=== PATIENT | female | born 1995 | race Caucasian/White ===

== ENCOUNTER 2018-12-27 11:15 | Emergency (ER) | payer BC, SELFPAY ==
[2018-12-27 11:20] VITALS: BP 153/94; PULSE 126; RESP 18; TEMP 37.3; O2SAT 98
--- NOTE | 2018-12-27 11:26 | ED.GENADUL_ITS ---
Discharge Plan Disposition Patient Disposition: HOME Condition: Improving Discharge Details Chief Complaint: Sorethroat Clinical Impression: Exudative pharyngitis Primary Care Provider: Judith Pastrana ED Provider: Homer Dillard Home Meds and New Rx's Prescriptions: New penicillin V potassium 500 mg tablet 500 mg PO TID 10 Days Qty: 30 RF: 0 Cepacol Sore Throat (taina-men) 15-3.6 mg lozenge 1 trinity MM Q2H PRN (Reason: sore throat) Qty: 16 RF: 0 No Action penicillin V potassium 500 MG tablet 500 mg PO QID Qty: 40 RF: 0 Discharge Instructions Instructions: Pharyngitis (ED) Additional Instructions: Home to rest today. Small, frequent sips of fluids to maintain hydration. May use Tylenol and/or ibuprofen as needed for discomfort. Take penicillin as prescribed. Return for difficulty swallowing, increasing pain, persistent fevers, or any other acute concern Stand Alone Forms: Work Release Medical Decision Making 22-year-old female with sore throat and fever over days time. She arrives with elevated pulse, exam that reveals exudative pharyngitis. Given Tylenol and a popsicle and her pulse improved. Her rapid strep test is negative, but she does have evidence of an exudative pharyngitis. Discussed with the patient and her mother empirical treatment for streptococcal pharyngitis we will proceed with a course of penicillin. She is stable and improving, appropriate for discharge to home. They understand return precautions to the ED. HPI General Mode of arrival: ambulatory . Date/Time Provider Initiated Documentation: 12/27/18 11:22 . Limitations to Documentation: no limitations . Information obtained by: patient . History of Present Illness 23 year old F presents to the emergency department with the chief complaint of Sore throat, fever, body ache, described as moderate, Quality is described as aching, and is localized to the mouth. Patient started experiencing this hour(s) and it has been constant. No relieving factors improve symptom(s), No exacerbating factors reported . Patient notes fever/chills. Patient did receive the following treatments prior to arrival, none Related Data Home Medications Medication Instructions Recorded Confirmed penicillin V potassium 500 mg PO QID #40 tablet 08/07/17 benzocaine-menthol [Cepacol Sore 1 trinity MM Q2H PRN #16 each 12/27/18 Throat (taina-men)] penicillin V potassium 500 mg PO TID 10 Days #30 tab 12/27/18 Previous Rx's Medication Instructions Recorded penicillin V potassium 500 mg PO QID #40 tablet 08/07/17 benzocaine-menthol [Cepacol Sore 1 trinity MM Q2H PRN #16 each 12/27/18 Throat (taina-men)] penicillin V potassium 500 mg PO TID 10 Days #30 tab 12/27/18 Allergies Allergy/AdvReac Type Severity Reaction Status Date / Time No Known Allergies Allergy Unverified 12/27/18 11:23 General Stated Complaint: Sorethroat MAICO: 4 Review of Systems Review of Systems Narrative: Positive sick contacts at home. No vomiting. She has otherwise been well. 6 systems reviewed and negative [facility] Medical History Amenorrhea (Acute) Family History Mother Essential hypertension Depression Father Essential hypertension Depression Asthma Sister No problems noted. Grandfather No problems noted. Grandfather No problems noted. Grandmother Neoplasm BLADDER Grandmother No problems noted. Family History Substance abuse Diabetes Hyperlipidemia Autism IBD (inflammatory bowel disease) IBS (irritable bowel syndrome) Thyroid disease Social History Smoking/Tobacco Use Status: Former Tobacco Use Alcohol Intake: current Alcohol Intake frequency: holidays/special occasions only Drug use: Never Do you feel safe in your relationship?: Yes Exam Narrative Exam Narrative: GEN: awake, alert, oriented 3. Pleasant, well groomed, interactive. HEAD: Normocephalic, atraumatic ENT: Mucous membranes moist, oropharynx erythematous tonsillar pillars with overlying white exudate, External ear exam unremarkable EYES: PERRL, EOMI NECK: Full ROM, no FER, no menigismus CHEST/RESP: Nontender, clear to auscultation bilateral, no wheeze/rhonchi/rales CARDIOVASCULAR: Borderline tachycardia RRR, no murmur, rub mane. 2+ Rad pulse bilateral ABDOMEN: Soft, nontender, no mass. +Bowel sounds EXT: Full ROM, no edema, no rash Neuro: Grossly normal neurologic exam, conversant, interactive. Psych: Speech fluent, thoughts congruent, affect normal Course Vital Signs Vital signs: Vital Signs Temperature 37.3 C 12/27/18 11:20 Pulse 126 H 12/27/18 11:20 Respiratory Rate 18 12/27/18 11:20 Blood Pressure 153/94 H 12/27/18 11:20 Pulse Oximetry 98 12/27/18 11:20 Temperature 37.3 C 12/27/18 11:20 Temperature Source Skin 12/27/18 11:20 Pulse 126 H 12/27/18 11:20 Respiratory Rate 18 12/27/18 11:20 Blood Pressure 153/94 H 12/27/18 11:20 Pulse Oximetry 98 12/27/18 11:20 Pain Level 8 12/27/18 11:20
[2018-12-27] MEDS: Acetaminophen 500 MG TAB 1000 MG PO (11:31)
== END 2018-12-27 12:35 | disposition home or self-care (01) ==
PROVIDERS: Emergency Provider Emergency Medicine
DX: J02.9 Acute pharyngitis, unspecified (principal)
CPT/HCPCS: 87880; 99283; 87081

== ENCOUNTER 2019-07-03 07:49 | Emergency (ER) | payer BC, SELFPAY ==
[2019-07-03 07:54] VITALS: BP 120/70; PULSE 127; RESP 18; TEMP 36.8; O2SAT 97
--- NOTE | 2019-07-03 08:49 | ED.GENADUL_ITS ---
Discharge Plan Disposition Patient Disposition: HOME Condition: Stable Discharge Details Chief Complaint: DentalOral Clinical Impression: Dental abscess Primary Care Provider: None,None ED Provider: Kassandra Bettencourt Home Meds and New Rx's Prescriptions: New penicillin V potassium 500 mg tablet 500 mg PO QID Qty: 40 RF: 0 No Action Cepacol Sore Throat (taina-men) 15-3.6 mg lozenge 1 trinity MM Q2H PRN (Reason: sore throat) Qty: 16 RF: 0 calcium polycarbophil [Fiber (calcium polycarbophil)] 625 mg Tablet 625 mg PO QID RF: 0 Probiotic 3 billion cell Capsule 3,000 mmu cells PO DAILY RF: 0 Discharge Instructions Instructions: Dental Abscess (ED) Additional Instructions: Warm salt water rinses after eating or drinking. Motrin or Tylenol for soreness if needed. Use antibiotics as prescribed. Rest activities as tolerated. Ice to the cheek if needed. Keep head of bed elevated for comfort. Follow-up with local dentist. Follow-up with PCP if not improving in the next 3 to 5 days. Observe for any fevers lasting greater than 3 to 5 days as discussed. Reevaluate for any increased facial swelling, difficulty eating or drinking, increase in ill feeling or worsening symptoms as discussed Discharge Data Discharge Date/Time-TO BE ENTERED AT DEPARTURE: 07/03/19 08:48 Medical Decision Making This is a 24-year-old patient presenting for complaints of dental pain for the last several days. Patient reports onset of fever noted this morning she measured her temperature at home today after feeling somewhat febrile and noted to 101 temperature. Patient did not take any medications prior to arrival to the emergency room. Afebrile on arrival here. Patient does report she is feeling anxious regarding being in the emergency room right now she does have a heart rate noted of 127 however denies any chest pain with difficulty getting shortness of breath or wheezing. Patient denies upper respiratory symptoms at this time. She reports mild nasal congestion but denies any cough, ear pain, sore throat, headache, dizziness. Patient denies any abdominal pain, nausea, vomiting. She did report a single episode of diarrhea however she does report that she typically gets GI upset after eating certain foods. On physical exam patient does have a mild area of swelling adjacent to right upper posterior tooth. No trismus. On physical exam patient does have a right upper posterior molar which does appear infected there is swelling adjacent to the right posterior molar. Discussed incision and drainage. No significant fluctuance at this time. Will trial antibiotics initially. Counseled regarding signs and symptoms for which patient should have return. Patient agrees with this plan of care. Conservative treatments also discussed. The patient was stable and requested discharge. Prior to discharge, my usual and customary return precautions were reviewed with the patient - this included follow-up instructions and reasons to return to the Emergency Department if conditions worsens, does not improve as expected, or other new concerns arise. HPI General Date/Time Provider Initiated Documentation: 07/03/19 08:11 . HPI Narrative: Is a 24-year-old patient presenting for complaints of dental pain. Patient reports 4 days of dental pain. History of similar in the past however patient is noting mild swelling to the soft palate adjacent to the tooth which is painful. Patient also reports gum swelling externally on the gums. Denies any facial swelling. Patient denies any cough, difficulty breathing shortness of breath or wheezing. No sore throat. No voice change or trismus. Patient does report a fever noted today of 101 which was measured at home. Afebrile here has taken no medications prior to arrival. Patient did report a single episode of diarrhea yesterday, she does report a history of stomach upset intermittently. Patient denies headache or dizziness. Patient denies any other concerns or complaints at this time. Patient does feel well hydrated. Patient does report she is feeling very anxious regarding being here. Patient denies any chest pain difficulty breathing or shortness of breath or wheezing. Related Data Home Medications Medication Instructions Recorded Confirmed benzocaine-menthol [Cepacol Sore 1 trinity MM Q2H PRN #16 each 12/27/18 07/03/19 Throat (taina-men)] calcium polycarbophil [Fiber 625 mg PO QID 07/03/19 07/03/19 (calcium polycarbophil)] lactobacillus combination no.4 3,000 mmu cells PO DAILY 07/03/19 07/03/19 [Probiotic] penicillin V potassium 500 mg PO QID #40 tab 07/03/19 Previous Rx's Medication Instructions Recorded benzocaine-menthol [Cepacol Sore 1 trinity MM Q2H PRN #16 each 12/27/18 Throat (taina-men)] penicillin V potassium 500 mg PO QID #40 tab 07/03/19 Allergies Allergy/AdvReac Type Severity Reaction Status Date / Time No Known Allergies Allergy Unverified 07/03/19 08:00 General Stated Complaint: DentalOral MAICO: 4 Review of Systems All systems reviewed & are unremarkable except as noted in HPI and below Constitutional Constitutional: Denies chills, Denies fatigue, Reports fever(s), Denies headache(s) and Denies malaise ENT Ears, Nose, Mouth, and Throat: Denies halitosis, Reports dental pain, Denies dizziness, Denies headache(s), Denies sinus pain, Denies sinus pressure and Denies sore throat Cardiovascular Cardiovascular: Denies chest pain and Denies dyspnea Respiratory Respiratory: Reports cough, Denies pain with cough and Denies dyspnea Gastrointestinal Gastrointestinal: Denies abdominal pain, Reports diarrhea, Denies nausea and Denies vomiting Neurologic Neurologic: Denies dizziness and Denies headache(s) Psychiatric Psychiatric: Reports anxiety and Denies irritability Endocrine Endocrine: Denies fatigue PFSH Medical History Amenorrhea (Acute) Social History Smoking/Tobacco Use Status: Former Tobacco Use Alcohol Intake: current Alcohol Intake frequency: holidays/special occasions only Drug use: Never Substance use type: does not use Do you feel safe at home: Yes Do you feel safe in your relationship?: Yes Exam Narrative Exam Narrative: CONST: Healthy appearing patient, in no acute distress. Well hydrated. Alert and oriented. HENMT: Head nomocephalic, normal to inspection. Atraumatic. Hearing grossly no rmal. Patient with a area of swelling in the upper right posterior molar which is diffuse, no obvious fluctuance, another area of swelling and mild erythema noted to the soft palate adjacent to the tooth, again no fluctuance. TMs appear normal bilaterally EYES: General normal appearance. Alignment normal. Eyelids normal. Conjunctiva normal. NECK: Normal visual inspection. FROM. Trachea midline. No Midline tenderness. No cervical lymphadenopathy CHEST: Normal insepection of the chest. RESP: Normal respiratory effort. Speaking full sentences. No cough. No audible wheezing. No retractions. Breath sound clear, full and equal bilaterally. No wheezing, rhonchi or rales CARDIO: No JVD. No murmur. Mild tachycardia noted. SKIN: Normal. Dry. No rashes. No facial swelling NEURO: Alert and awake. Speech clear. PSYCH: Normal affect. Cooperative. Course Vital Signs Vital signs: Vital Signs Temperature 36.8 C 07/03/19 07:54 Pulse 127 H 07/03/19 07:54 Respiratory Rate 18 07/03/19 07:54 Blood Pressure 120/70 07/03/19 07:54 Pulse Oximetry 97 07/03/19 07:54 Temperature 36.8 C 07/03/19 07:54 Temperature Source Skin 07/03/19 07:54 Pulse 127 H 07/03/19 07:54 Respiratory Rate 18 07/03/19 07:54 Respiratory Effort Non-Labored 07/03/19 08:03 Blood Pressure 120/70 07/03/19 07:54 Blood Pressure Position Sitting 07/03/19 07:54 Pulse Oximetry 97 07/03/19 07:54 Oxygen Delivery Method Room Air 07/03/19 07:54 Oxygen Flow Rate 0 07/03/19 07:54 Pain Level 6 07/03/19 07:54
== END 2019-07-03 08:48 | disposition home or self-care (01) ==
PROVIDERS: Emergency Provider Physician Assistant
DX: K04.7 Periapical abscess without sinus (principal)
CPT/HCPCS: 99283

== ENCOUNTER 2020-03-01 00:26 | Outpatient (CLI) | payer BC, SELFPAY ==
--- NOTE | 2020-03-01 06:45 | DI.US_ITS ---
EXAM: US PELVIS CLINICAL HISTORY: Amenorrhea TECHNIQUE: Ultrasound performed using standard protocol. COMPARISON: No exams were available for comparison FINDINGS: Pelvic ultrasound was performed transabdominally only at the patient's request. Uterus is normal in appearance, measuring 8.3 x 1.6 x 3.5 cm. Endometrial stripe is not well visualized cannot be measur ed. Right ovary measures 44 x 24 x 19 millimeters, left ovary measures 39 x 20 x 19 millimeters. The ova susannah are unremarkable in appearance with no gross vascular abnormality associated with the ovaries. Limited scanning of the kidneys is unremarkable. No free fluid in the cul-de-sac. IMPRESSION: Negative pelvic ultrasound, performed transabdominally only. DATA REPOSITORY:
== END 2020-03-01 00:46 ==
PROVIDERS: PCP Nurse Practitioner Family; Visit Provider Nurse Practitioner Family
DX: N91.2 Amenorrhea, unspecified (principal)
CPT/HCPCS: 76856

== ENCOUNTER → 2020-04-28 03:09 | Outpatient (CLI) | payer BC, SELFPAY ==
[2020-04-28 12:19] LABS: HCG Quant, Pregnancy < 1 mIU/mL (1-3)
[2020-04-28 16:49] LABS: Estradiol 40 pg/mL (See Note)
[2020-04-28 17:29] LABS: Prolactin 9.5 ng/mL (See Table)
[2020-05-01 23:16] LABS: 17-Hydroxyprogesterone 43 ng/dL
== END ==
PROVIDERS: PCP Nurse Practitioner Family; Visit Provider Obstetrics & Gynecology
DX: N91.5 Oligomenorrhea, unspecified (principal)
CPT/HCPCS: 36415; 82670; 83498; 84146; 84702

== ENCOUNTER 2020-11-03 04:37 | Emergency (ER) | payer BC, SELFPAY ==
--- NOTE | 2020-11-03 04:53 | W.ED.GENAD ---
Discharge Plan Disposition Patient Disposition: HOME Condition: Stable Discharge Details Clinical Impression: Acute lumbar myofascial strain Primary Care Provider: Jacquelyn Ladd ED Provider: Baylee Gan Home Meds and New Rx's Prescriptions: New methocarbamol 500 mg tablet 500 mg PO Q6H PRN (Reason: muscle spasm) Qty: 14 RF: 0 naproxen [Naprosyn] 500 mg tablet 500 mg PO BID PRN (Reason: pain) Qty: 14 RF: 0 Continued Benefiber Clear SF (dextrin) 3 gram/3.5 gram powder in packet 1.5 g PO TID RF: 0 medroxyprogesterone [Provera] 10 mg tablet 10 mg PO DAILY Qty: 10 RF: 3 lamotrigine 200 mg tablet 200 mg PO DAILY Qty: 90 RF: 4 quetiapine 25 mg tablet 25 mg PO DAILY Qty: 90 RF: 0 dextroamphetamine-amphetamine [Adderall] 30 mg tablet 30 mg PO BID MDD 60mg Qty: 60 RF: 0 lamotrigine 200 mg tablet RF: 0 Discharge Instructions Instructions: Low Back Strain (ED) Additional Instructions: Apply ice to the affected area several times daily for 20 minutes at a time. Your prescriptions have been sent electronically to your pharmacy. Call the pharmacy to make sure your prescriptions are ready before pickup. Take the prescriptions as directed. Take the anti-inflammatory naproxen and a muscle relaxer methocarbamol as needed and directed for pain. Follow-up with your primary care doctor in 1 week. Return to the emergency department with any worsening or new concerning symptoms such as fever, vomiting, abdominal pain, loss of bowel or bladder function, rectal pain or bleeding or any other concerns. Discharge Data Discharge Date/Time-TO BE ENTERED AT DEPARTURE: 11/03/20 05:58 Discharge Physician: Baylee Gan Medical Decision Making 25-year-old female presents with bilateral lower back pain since this morning. Denies any known specific injury but states masturbated with a dildo in her anus yesterday and states she may have twisted her back. She denies any fever, vomiting, abdominal pain, rectal pain or bleeding. No cauda equina symptoms. Patient appears comfortable and nontoxic. Her abdomen is soft and nontender. She has no focal deficits. She is tender to palpation to her bilateral lumbar paraspinal and bilateral upper buttock region. There is no evidence of trauma or rash. She is neurovascularly intact. Urine test negative. Discussed with patient that as her pain is reproducible without focal deficits or GI or symptoms, suspect most likely musculoskeletal etiology as the source. Do not see an indication for labs or imaging at this time. Offered to inspect anus region but she declined stating she did not feel this was necessary and denies any pain in this area at this time. She was given a IM injection of Toradol with some relief. She is walking to [place] to meet her parents to pick her up and does not want any sedating medication. She is given a dose of oral Valium to go. Prescriptions for naproxen and methocarbamol sent electronically to her pharmacy. Advised to follow up with the primary care doctor for re-evaluation. Usual and customary return precautions given prior to discharge. Medical Records Medical records reviewed: Yes I reviewed the patient's medical records. HPI General Mode of arrival: ambulatory. Date/Time Provider Initiated Documentation: 11/03/20 04:38. Limitations to Documentation: no limitations. Information obtained by: patient. HPI Narrative: Patient is a 25-year-old female with a history of obesity, hyperlipidemia, depression, PCOS who presents from home for lower back pain early this morning. Patient states the pain is in her bilateral lower back and upper buttock. She states the pain is worse with movement and walking. She does not take any medication for pain. She denies fever, vomiting, abdominal pain, urinary symptoms, bowel or bladder incontinence, saddle anesthesia, leg pain weakness or numbness. Patient did endorse to the nurse and myself that she masturbated with a rubber dildo in her anus last night and is unsure if this has any relation to the pain. She states she was twisting around during this activity. She denies any other known injury or fall. She denies any rectal pain or bleeding. Related Data Home Medications Medication Instructions Recorded Confirmed lamotrigine 200 mg tablet 200 mg PO DAILY #90 tab-cap 04/14/20 11/03/20 quetiapine 25 mg tablet 25 mg PO DAILY #90 tab 06/16/20 11/03/20 medroxyprogesterone 10 mg tablet 10 mg PO DAILY #10 tab 08/25/20 10/21/20 wheat dextrin 3 gram/3.5 gram oral 1.5 g PO TID 08/25/20 11/03/20 powder packet dextroamphetamine-amphetamine 30 30 mg PO BID #60 tab MDD 60mg 09/27/20 11/03/20 mg tablet lamotrigine 11/03/20 11/03/20 methocarbamol 500 mg PO Q6H PRN #14 tab 11/03/20 naproxen [Naprosyn] 500 mg PO BID PRN #14 tab 11/03/20 Previous Rx's Medication Instructions Recorded lamotrigine 200 mg tablet 200 mg PO DAILY #90 tab-cap 04/14/20 quetiapine 25 mg tablet 25 mg PO DAILY #90 tab 06/16/20 medroxyprogesterone 10 mg tablet 10 mg PO DAILY #10 tab 08/25/20 dextroamphetamine-amphetamine 30 30 mg PO BID #60 tab MDD 60mg 09/27/20 mg tablet methocarbamol 500 mg PO Q6H PRN #14 tab 11/03/20 naproxen [Naprosyn] 500 mg PO BID PRN #14 tab 11/03/20 Allergies Allergy/AdvReac Type Severity Reaction Status Date / Time No Known Allergies Allergy Unverified 10/21/20 11:50 General MAICO: 4 Review of Systems All systems reviewed & are unremarkable except as noted in HPI and below Constitutional Constitutional: Reports as per HPI, Denies chills and Denies fever(s) Eyes Eyes: Denies blurry vision ENT Ears, Nose, Mouth, and Throat: Denies dizziness, Denies sore throat and Denies throat swelling Cardiovascular Cardiovascular: Denies chest pain and Denies dyspnea Respiratory Respiratory: Denies cough and Denies dyspnea Gastrointestinal Gastrointestinal: Denies abdominal pain, Denies diarrhea and Denies vomiting Genitourinary Genitourinary: Denies hematuria and Denies dysuria Musculoskeletal Musculoskeletal: Reports back pain and Denies numbness Integumentary/Breasts Skin/Breast: Denies lesions and Denies rash Neurologic Neurologic: Denies dizziness, Denies localized weakness and Denies numbness Allergic/Immunologic Allergic/Immunologic: Denies throat swelling [facility] Medical History Attention and concentration deficit Generalized anxiety disorder Hyperlipidemia Major depressive disorder Obesity Oligomenorrhea PCOS (polycystic ovarian syndrome) Suicide attempt Surgical History No significant past surgical history Family History Mother Depression Hypertension Father Depression Asthma Hypertension Sister Ulcerative colitis Maternal Grandfather No problems noted. Maternal Grandmother Bladder cancer Paternal Grandfather Depression Paternal Grandmother No problems noted. Maternal Aunt Bipolar affective disorder Social History Smoking/Tobacco Use Status: Former Tobacco Use tobacco type: cigarettes Quit Date: 04/01/18 Tobacco: How many years used: 10 Second Hand Exposure: Yes Smoking risk assessment performed?: Yes Alcohol Intake: current Alcohol Intake frequency: holidays/special occasions only Alcohol type: beer, wine and hard liquor Drug use: Never Substance use type: does not use Caregiver/Support person: No Household members: family Housing: apartment Communication Needs: None Do you need help understanding health information?: Rarely Pets and animals: Yes (Paramichael, sourav glider,) Pets and animals: hamster(s) Sexually active: No Do you think of yourself as: bisexual Current gender identity: neither exclusively male nor female What is your relationship status?: never How often do you talk on the phone with friends or family?: never How often do you get together with friends or relatives?: never How often do you attend oriental orthodox or zoroastrian services?: decline to answer Do you belong to any clubs or organized social groups?: no Panel score (0-1 are the most socially isolated patients): 0 What type of physical activity do you participate in: none Jossy/Baptism: No preference Special jossy needs: No Seatbelt use: always Helmet use: Yes Helmet use: always Drive intox 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 Do you feel safe at home: Yes Do you feel safe in your relationship?: Yes History History 0 Para Hx # Term Pregnancies Multiple births Hx # Pregnancies Ectopic pregnancies AB induced Hx Number of Living Children AB spontaneous Exam Const General: cooperative, healthy appearing and no acute distress HENMT Head: normal to inspection Face and sinus: normal facial exam Eyes General: appearance normal, both eyes and all related structures EOM: EOM intact bilaterally Neck Neck: normal visual inspection and No submandibular swelling Lymphatic: no lymphadenopathy noted Chest Chest: normal inspection of the chest and no tenderness Resp Effort & Inspection: normal respiratory effort and able to speak in complete sentences Auscultation: clear to auscultation bilaterally Cardio Rate: regular rate Rhythm: regular rhythm GI Inspection: normal to inspection Palpation: soft, not firm, not rigid and nontender Auscultation: normal bowel sounds Back/Spine/Pelvis Thoracic/Lumbar Spine: thoracic and lumbar spine normal to inspection, paraspinal tenderness (Bilateral lumbar, reproducible with movement at lumbar region), No thoracic spinal tenderness and No lumbar spinal tenderness Pelvis: no pain with anterior-posterior compression Sacrum: tenderness bilaterally (muscular region in upper buttocks laterally) Skin General skin exam: no rashes or lesions noted Neuro General: patient alert, patient awake and patient oriented x3 Cognition: normal cognition Speech: speech normal Motor: muscle tone normal throughout and strength 5/5 throughout Sensory Exam: no sensory deficits noted DTR's: Rt Patellar: 1+, Lt Patellar: 1+, Rt Ankle: 1+ and Lt Ankle: 1+ Plantar Reflexes: Equivocal: bilateral (Negative Babinski bilaterally) Extrem General: normal to inspection, full ROM, capillary refill normal, no calf tenderness bilaterally and no edema Other: Bilateral DP/PT pulses intact Psych Appearance: grossly normal Mental Status: mental status grossly normal Speech and Movement: speech and movement normal Affect: normal affect
[2020-11-03 04:55] VITALS: BP 149/88; PULSE 92; RESP 18; TEMP 36.6; O2SAT 100
[2020-11-03 05:24] VITALS: RESP 20
[2020-11-03] MEDS: diazePAM 5 MG TAB PO (05:41)
[2020-11-03] MEDS: Ketorolac 60 MG/2 ML VIAL IM (05:42)
[2020-11-03 05:57] VITALS: BP 149/88; PULSE 92; RESP 20; TEMP 36.6; O2SAT 100
== END 2020-11-03 05:58 | disposition home or self-care (01) ==
LOC: ER 05:44
PROVIDERS: Emergency Provider Physician Assistant; PCP Nurse Practitioner Family
DX: S39.012A Strain of muscle, fascia and tendon of lower back, initial encounter (principal); X50.9XXA Other and unspecified overexertion or strenuous movements or postures, initial encounter
CPT/HCPCS: 81025; 96372; 99284; J1885

== ENCOUNTER 2021-06-29 12:05 | Outpatient (REF) | payer BC, SELFPAY ==
--- NOTE | 2021-06-29 10:40 | PAPFT_PTH ---
PATIENT: Yolanda Summers LOC: [facility] U#:[id number] AGE/SX: 26/F ROOM: RE06/29/[address]: Vaishnavi Ma DO : 1995 BED: DIS: 06/29/2021 SPEC #: [id number] RECD: 06/29/21 12:44 STATUS: REZA REQ #: [id number] CARMEL: 06/29/21 10:[address]: Vaishnavi Ma DEPT: [facility] Cytology RECD BY: Vani Beckett ENTERED: 06/29/21 12:44 SP TYPE: PAPFT OTHR DR: Jacquelyn Ladd, PATIENT REGISTRAR Tissues: 1 - CX/ENDOCX FOR PAP SMEARS Procedures: PAP THIN PREP/UVM Screening Comments: [id number] (CHLAMYDIA/GC) (UNSATISFACTORY FOR EVALUATION)
[2021-06-30 15:09] LABS: Chlamydia Result Negative (Negative); GC Result Negative (Negative)
== END 2021-06-29 12:06 | disposition home or self-care (01) ==
LOC: LBN 12:05
PROVIDERS: PCP Nurse Practitioner Family; Visit Provider Obstetrics & Gynecology
DX: Z12.4 Encounter for screening for malignant neoplasm of cervix (principal); R87.615 Unsatisfactory cytologic smear of cervix; Z11.3 Encounter for screening for infections with a predominantly sexual mode of transmission
CPT/HCPCS: 87491; 87591; 88142

== ENCOUNTER 2021-07-11 03:05 | Outpatient (CLI) | payer BC, SELFPAY ==
[2021-07-11 15:20] LABS: Hemoglobin A1C 5.5 % (<5.7)
[2021-07-11 17:27] LABS: Anion Gap 9.6 mmol/L (3-11); BUN 19 mg/dL (7-18); CO2 25.4 mmol/L (21.0-32.0); Calcium 8.5 mg/dL (8.5-10.1); Calculated LDL 114 mg/dL (<100); Chloride 107 mmol/L (98-107); Cholesterol 176 mg/dL (<200); Glucose 75 mg/dL (74-106); HDL Cholesterol 42 mg/dL (40-60); Potassium 4.2 mmol/L (3.5-5.1); Sodium 142 mmol/L (136-145); TSH 1.02 uIU/mL (0.36-3.74); Triglyceride 100 mg/dL (<150)
[2021-07-13 09:57] LABS: HIV-1/2 Ag & Ab Screen Negative (Negative)
[2021-07-13 11:07] LABS: Syphilis Serology (RPR) Negative (Negative)
[2021-07-13 12:51] LABS: Hepatitis A Antibody IgM Negative (Negative); Hepatitis B Core Antibody Negative (Negative); Hepatitis B surface Ag Negative (Negative); Hepatitis C Ab w Rflx HCV PCR Negative (Negative)
== END 2021-07-11 03:06 | disposition home or self-care (01) ==
LOC: LBO 03:06
PROVIDERS: PCP Nurse Practitioner Family; Visit Provider Obstetrics & Gynecology
DX: Z00.00 Encounter for general adult medical examination without abnormal findings (principal); Z11.3 Encounter for screening for infections with a predominantly sexual mode of transmission; Z11.4 Encounter for screening for human immunodeficiency virus [HIV]; Z11.59 Encounter for screening for other viral diseases
CPT/HCPCS: 36415; 80048; 80061; 86704; 86709; 86803; 87340; 87389; 83036; 84439; 84443; 86592

== ENCOUNTER 2021-07-28 09:26 | Outpatient (REF) | payer BC, SELFPAY ==
--- NOTE | 2021-07-28 08:35 | PAPFT_PTH ---
PATIENT: Yolanda Summers LOC: [facility] U#:[id number] AGE/SX: 26/F ROOM: RE07/28/[address]: Vaishnavi Ma DO : 1995 BED: DIS: 07/28/2021 SPEC #: [id number] RECD: 07/28/21 12:53 STATUS: REZA REQ #: [id number] CARMEL: 07/28/21 08:[address]: Vaishnavi Ma DEPT: [facility] Cytology RECD BY: Vani Beckett ENTERED: 07/28/21 12:54 SP TYPE: PAPFT OTHR DR: Jacquelyn Ladd, DIGITAL PROJECT COORDINATOR Tissues: 1 - CX/ENDOCX FOR PAP SMEARS Procedures: PAP THIN PREP/UVM Screening Comments: [id number]
== END 2021-07-28 09:27 | disposition home or self-care (01) ==
LOC: LBN 09:26
PROVIDERS: PCP Nurse Practitioner Family; Visit Provider Obstetrics & Gynecology
DX: Z12.4 Encounter for screening for malignant neoplasm of cervix (principal)
CPT/HCPCS: 88142

== ENCOUNTER 2021-10-22 11:59 | Inpatient (IN) | payer BC, SELFPAY ==
[2021-10-22] VITALS (45 sets, daily range): BP systolic 117–150; BP diastolic 53–104; PULSE 47–108; RESP 12–29; TEMP 35.5–37.3; O2SAT 95–100
--- NOTE | 2021-10-22 12:00 | RT.EKG_ITS ---
APPROVED REPORT Exam: Resting ECG Reason for Exam: overdose tylenol Patient Location: E HR:90 bpm ECG Measurements Heart Rate 90 AXIS IA 187 P 27 QRSd 105 QRS 43 QT 386 T 23 QTc 472 Conclusion Sinus rhythm...normal P axis, V-rate 60- 99 sinus rhythm, normal axis, normal intervals
--- NOTE | 2021-10-22 12:39 | W.ED.GENAD ---
Discharge Plan Disposition Patient Disposition: [facility] INPATIENT Condition: Fair Discharge Details Chief Complaint: OD/Poison Clinical Impression: Tylenol overdose, Suicide attempt Primary Care Provider: Jacquelyn Ladd ED Provider: Nikhil Blakely Home Meds and New Rx's Prescriptions: No Action Benefiber Clear SF (dextrin) 3 gram/3.5 gram powder in packet 3 g PO DAILY Probiotic 3 billion cell capsule 3,000 mmu cells PO DAILY Rx Instructions: administer with a meal Mirena 20 mcg/24 hours (7 yrs) 52 mg intrauterine device 1 device intrauterine ONCE Rx Instructions: as a single dose lamotrigine 150 mg tablet 150 mg PO BID Qty: 60 0RF fluoxetine 20 mg capsule 20 mg PO DAILY Qty: 30 0RF fluoxetine [Prozac] 10 mg capsule 10 mg PO DAILY Qty: 90 3RF Medical Decision Making 26-year-old female brought in by EMS with evidence of self injures behavior, self cutting superficial linear excoriations to wrist and forearm of left upper extremity as well as right upper thigh, hemostatic no foreign bodies no evidence of active infection, no neurovascular involvement or tendinous involvement, patient also endorses beginning last night at unknown time ingesting approximately 55 x500 mg acetaminophen tablets, last dose taken within the last several hours. Patient denies headache nausea vomiting abdominal pain fevers or other systemic symptoms. Patient is hemodynamically stable. Given most recent ingestion was within the last couple of hours will administer activated charcoal, given total calculated dose of acetaminophen at 27,500 mg which exceeds the 150 mg/kg toxic level as well as the 7.5 g toxic level, will empirically start N-acetylcysteine infusion. Will obtain tox labs basic labs EKG screening, will administer fluids antiemetics, after initial medical evaluation will initiate screening by mental health patient will need medical admission to complete 21-hour N-acetylcysteine infusion regimen 14: 13 patient hemodynamically stable. Alert oriented. Maintaining airway. Did have some nausea and slight vomiting after charcoal. NAC infusion initiated. Tylenol level 177 at approximately 10 to 12 hours postinitial ingestion. Patient readmitted to the ICU for continued monitoring of hemodynamics labs mental status and continued infusion of NAC. HPI General Date/Time Provider Initiated Documentation: 10/22/21 12:04. HPI Narrative: 26-year-old female history of depression anxiety, presents brought in by EMS picked up from her work where she was self cutting, superficial cuts to her left wrist and forearm as well as her right upper thigh, patient endorses taking approximately 55 x 500 mg acetaminophen tablets beginning last night into this morning unclear initial ingestion however most recent dose within the last couple of hours. Denies headache nausea vomiting fevers chills or other systemic symptoms. Patient Dors is that she was doing this intentionally to harm herself. Related Data Home Medications Medication Instructions Recorded Confirmed lactobacillus combination no.4 3 3,000 mmu cells PO DAILY 07/06/21 08/31/21 billion cell capsule (Probiotic) wheat dextrin 3 gram/3.5 gram oral 3 g PO DAILY 07/06/21 10/19/21 powder packet (Benefiber Clear Sugar Free(dextrin)) fluoxetine 10 mg capsule (Prozac) 10 mg PO DAILY #90 caps 07/28/21 10/19/21 levonorgestrel 20 mcg/24 hours (7 1 device intrauterine ONCE 07/28/21 10/19/21 yrs) 52 mg intrauterine device (Mirena) fluoxetine 20 mg capsule 20 mg PO DAILY #30 caps 10/19/21 10/19/21 lamotrigine 150 mg tablet 150 mg PO BID #60 tabs 10/19/21 10/19/21 Previous Rx's Medication Instructions Recorded fluoxetine 10 mg capsule (Prozac) 10 mg PO DAILY #90 caps 07/28/21 fluoxetine 20 mg capsule 20 mg PO DAILY #30 caps 10/19/21 lamotrigine 150 mg tablet 150 mg PO BID #60 tabs 10/19/21 Allergies Allergy/AdvReac Type Severity Reaction Status Date / Time No Known Allergies Allergy Verified 08/31/21 10:42 General Stated Complaint: OD/Poison MAICO: 2 Review of Systems Narrative: Review of Systems Constitutional: negative Eyes: negative ENT: negative Cardiovascular: negative Respiratory: negative Gastrointestinal: negative : negative Musculoskeletal: negative Skin: Self cutting Neurologic: negative Psych: Depression, self-harm PFSH All Active Problems (Updated 10/22/21 @ 14:15 by Nikhil Blakely MD) Tylenol overdose (Acute) Suicide attempt (Acute) Deliberate self-cutting (Acute) PCOS (polycystic ovarian syndrome) (Chronic) Obstructive sleep apnea (Chronic) PSG 04/22/20 Adjustment disorder with mixed anxiety and depressed mood (Chronic) Per [facility] Psychiatry Hyperlipidemia (Chronic) IUD surveillance (Chronic) Mirena IUD inserted 06/29/21 Heavy menses (Chronic) Oligomenorrhea (Chronic) Obesity (Chronic) Medical History Suicide attempt Tried to choke herself with scarf Surgical History No significant past surgical history Family History Mother Depression Hypertension Father Depression Asthma Hypertension Sister Ulcerative colitis Maternal Grandfather No problems noted. Maternal Grandmother Bladder cancer Paternal Grandfather Depression Paternal Grandmother No problems noted. Maternal Aunt Bipolar affective disorder Social History Smoking/Tobacco Use Status: Current every day Tobacco Type: e-cigarettes Tobacco: How many years used: 10 Second Hand Exposure: Yes Smoking risk assessment performed?: Yes Alcohol Intake: current Alcohol Intake frequency: a few times a month Alcohol type: beer, wine and hard liquor Drug use: Occasionally Substance use type: marijuana Caregiver/Support person: No Household members: family Housing: apartment Communication Needs: None Do you need help understanding health information?: Rarely Pets and animals: Yes (Parakeet, sugar glider,) Pets and animals: hamster(s) Sexually active: Yes Do you think of yourself as: bisexual Current gender identity: neither exclusively male nor female What is your relationship status?: never How often do you talk on the phone with friends or family?: twice per week How often do you get together with friends or relatives?: once per week How often do you attend mosque or pentecostalism services?: decline to answer Do you belong to any clubs or organized social groups?: no Panel score (0-1 are the most socially isolated patients): 1 What type of physical activity do you participate in: walking Duration: 45-60 minutes/day Frequency: 3-4 times per week Jossy/Presybeterian: No preference Special jossy needs: No Seatbelt use: always Helmet use: Yes Helmet use: always Drive intox or ride w/intox residential recycle driver: No Do you feel safe at home: Yes Do you feel safe in your relationship?: Yes History History 0 Para Hx # Term Pregnancies Multiple births Hx # Pregnancies Ectopic pregnancies AB induced Hx Number of Living Children AB spontaneous Exam Narrative Exam Narrative: Physical Examination General: alert, awake, cooperative, resting comfortably, no acute distress HEENT: normocephalic, atraumatic; PERRL, EOM intact, conjunctiva normal; no nasal discharge; moist mucous membranes, oral and pharyngeal mucosa normal, tolerating secretions Neck: supple, trachea midline; full ROM Chest: normal to inspection Respiratory: normal respiratory effort, speaking in full sentences, clear to auscultation, no wheezing, rales or rhonchi Cardiac: regular rate, regular rhythm, S1S2 intact, no murmurs rubs or gallops GI: abdomen soft, non-tender, non-distended; no palpable mass or hepatosplenomegaly Skin: Superficial linear excoriations to wrist and forearm as well as right upper thigh, hemostatic no foreign bodies, no evidence of infection Neuro: AAOx3, normal speech, moving all extremities Extremities: See skin exam Psych: Slightly withdrawn, depression, self-harm, suicide attempt Course Vital Signs Vital signs: Vital Signs Temperature 37.3 C 10/22/21 11:59 Pulse 108 H 10/22/21 11:59 Respiratory Rate 16 10/22/21 11:59 Blood Pressure 149/87 H 10/22/21 11:59 Pulse Oximetry 100 10/22/21 11:59 Temperature 37.3 C 10/22/21 11:59 Temperature Source Temporal Artery Scan 10/22/21 11:59 Pulse 108 H 10/22/21 11:59 Respiratory Rate 16 10/22/21 11:59 Respiratory Effort Non-Labored 10/22/21 12:06 Respiratory Depth Normal 10/22/21 12:06 Respiratory Pattern Normal 10/22/21 12:06 Blood Pressure 149/87 H 10/22/21 11:59 Blood Pressure Position Sitting 10/22/21 11:59 Pulse Oximetry 100 10/22/21 11:59 Oxygen Delivery Method Room Air 10/22/21 11:59 Oxygen Flow Rate 0 10/22/21 11:59 Pain Level 0 10/22/21 11:59
[2021-10-22] MEDS: Normal Saline 1,000 ML 1000 ML IV (12:51)
[2021-10-22] MEDS: Ondansetron 4 MG/2 ML VIAL IVP ×2 (12:55→15:23)
[2021-10-22 12:56] LABS: BE (Venous) -5 mmol/L (-2-3); HCO3 (Venous) 21 mmol/L (23-28); O2 Sat (Venous) 90 %; TCO2 (Venous) 19 mmol/L (24-29); pCO2 (Venous) 37 mmHg (41-51); pH (Venous) 7.36 (7.31-7.41); pO2 (Venous) 56 mmHg
[2021-10-22 13:00] LABS: Abs Immature Grans 0.05 10^3/uL (0.0-0.06); Absolute Basophil Count 0.05 10^3/uL (0.0-0.2); Absolute Eosinophil Count 0.02 10^3/uL (0.0-0.7); Absolute Lymphocyte Count 3.64 10^3/uL (1.2-3.4); Absolute Monocyte Count 0.64 10^3/uL (0.1-0.8); Absolute Neutrophil Count 5.17 10^3/uL (1.2-6.7); Basophils % 0.5; Eosinophils % 0.2; HCT 38.1 % (36.0-46.0); HGB 12.2 g/dL (11.2-15.7); Immature Grans % 0.5; MCH 27.3 pg (27.0-33.0); MCV 85 fL (80-95); MPV 10.8 fL (8.0-11.0); Monocytes % 6.7; Neutrophils % 54.1; Platelet Count 315 10^3/uL (130-400); RBC 4.47 10^6/uL (3.93-5.22); RDW 12.1 % (11.7-14.6); RDW-SD 37.6 fL; WBC 9.57 10^3/uL (4.4-10.8)
[2021-10-22] MEDS: Charcoal/Aqueous 50 GM TUBE PO (13:15)
[2021-10-22 13:18] LABS: Salicylate < 2.8 mg/dL (<2.8)
[2021-10-22 13:20] LABS: Acetaminophen 177 ug/mL (10-30)
[2021-10-22 13:23] LABS: PTT Activated 25.5 sec (21.0-27.5); Prothrombin Time 10.3 sec (9.3-11.0)
[2021-10-22 13:24] LABS: ALT 23 U/L (14-59); AST 21 U/L (15-37); Albumin 3.6 g/dL (3.4-5.0); Alkaline Phosphatase 58 U/L (46-116); Anion Gap 14.4 mmol/L (3-11); BUN 19 mg/dL (7-18); Bilirubin, Total 0.5 mg/dL (0.2-1.0); CO2 21.6 mmol/L (21.0-32.0); CREATININE 1.2 mg/dL (0.55-1.02); Calcium 8.5 mg/dL (8.5-10.1); Chloride 103 mmol/L (98-107); ETHANOL BLOOD < 3.0 mg/dL (<10); Glucose 139 mg/dL (74-106); Lipase 84 U/L (73-393); Potassium 3.1 mmol/L (3.5-5.1); Sodium 139 mmol/L (136-145); TSH (W/Ref FT4) 0.95 uIU/mL (0.36-3.74); Total Protein 8.1 g/dL (6.4-8.2)
[2021-10-22 14:22] LABS: Magnesium 1.9 mg/dL (1.8-2.4)
[2021-10-22 14:33] LABS: Source Nasal/Nares
[2021-10-22 15:26] LABS: COVID-19 PCR Negative (Negative)
--- OUTSIDE RECORDS SUMMARY | 2021-10-22 15:43 | XMS_ITS | Encounter Summary ---
:1995 Demographics Home Phone Preferred Language Unknown Marital Status Unknown Cheondoism Affiliation Unknown Race Unknown Ethnic Group Unknown Author Organization [facility] Address [address] [place] [address] Care Team Providers Name Role Phone Unavailable Primary Care Provider Unavailable Encounter Details Date Type Department Care Team Description 06/29/2021 Lab Requisition [facility] Vaishnavi Ma Encounter for other Pathology & [address] general examination Laboratory Medicine [facility] [address] [address] [facility] [phone] [place] [address] (Work) [phone] Social History Tobacco Use Types Packs/Day Years Used Date Never Assessed Sex Assigned at Date Recorded Not on file documented as of this encounter Plan of Treatment Not on filedocumented as of this encounter Procedures Procedure Name Priority Date/Time Associated Diagnosis Comme nts PAP TEST Today 06/29/2021 10:40 Encounter for other Resu lts for this EDT general examination procedur e are in the results section. CHLAMYDIA/N. Today 06/29/2021 10:40 Results for this GONORRHOEAE EDT procedure are i n AMPLIFIED RNA, the results THINPREP section. documented in this encounter Results PAP TEST (06/29/2021 10:40 EDT) Specimens A. Cervix and/or [facility] Endocervix , [place] ThinPrep Imaging LABORATORY System with Manual SERVICES Evaluation Specimen Adequacy Unsatisfactory for [facility] evaluation - CENTER insufficient numbers LABORATORY of squamous SERVICES epithelial cells (less than 10% of expected cellularity). Sample preparation compromised by excessive blood. General Unsatisfactory [facility] LABORATORY SERVICES Educational Comments An additional slide was prepared and evalua carol. [facility] Unsatisfactory - Specimen pr ocessed and examined, but unsatisfactory for evaluation of epithelial abnormality. Recommend Pap test in 2-4 months as stated in ASCCP's 2012 Updated Guidelines. HPV testing CENTER will not be performed due to the potential for f alse negative results. LABORATORY SERVICES Attestation . [facility] Electronically CENTER signed by JOE Bautista SCT(ASCP) on SERVICES 07/05/2021 at 144 0 Clinical History See below [facility] LABORATORY SERVICES Performing Lab [facility] LAB [facility] LABORATORY SERVICES Scanned Images [facility] LABORATORY SERVICES Specimen Pap Test - Cervix and/or Endocervix Performing Organization Address City/State/ZIP Code Phon e Number [facility] LABORATORY [address] [place] [address] SERVICES CHLAMYDIA/N. GONORRHOEAE AMPLIFIED RNA, THINPREP (06/29/2021 10:40 EDT) Pathologist Sig nature Gonococcus Result Negative Negative [facility] LABORATORY SERVICES Chlamydia Result Negative Negative [facility] LABORATORY SERVICES Specimen Pap Test - Cervix and/or Endocervix Performing Organization Address City/State/ZIP Code Phon e Number [facility]OR[facility] [address] [place] [address] SERVICES documented in this encounter Visit Diagnoses Diagnosis Encounter for other general examination documented in this encounter
--- OUTSIDE RECORDS SUMMARY | 2021-10-22 15:43 | XMS_ITS | Encounter Summary ---
:1995 Demographics Home Phone Preferred Language Unknown Marital Status Unknown Mu-Ism Affiliation Unknown Race Unknown Ethnic Group Unknown Author Organization [facility] Address [address] [place] [address] Care Team Providers Name Role Phone Unavailable Primary Care Provider Unavailable Encounter Details Date Type Department Care Team Description 04/28/2020 Lab Requisition [place] Outr Resulting Lab, Pathology & Laboratory Provider [facility] [address] [place] [address] Social History Tobacco Use Types Packs/Day Years Used Date Never Assessed Sex Assigned at Date Recorded Not on file documented as of this encounter Plan of Treatment Not on filedocumented as of this encounter Procedures Procedure Name Priority Date/Time Associated Diagnosis Comme nts PROLACTIN Routine 04/28/2020 11:06 Results for this EST procedure are i n the results section. ESTRADIOL, ADULTS Routine 04/28/2020 11:06 Result s for this EST procedure are i n the results section. documented in this encounter Results PROLACTIN (04/28/2020 11:06 EST) Prolactin 9.5 See Table [facility] Comment: ng/mL LABORATORY SERVICES NOTE: Female Reference Ranges: PHYSIOLOGICAL STATUS ?EXPECTED R LILIBETH ? ---- Postmenopausal ?1.8 - 2 0.3 ng/mL ?9.7 - 208.5 ng/mL Non- ?2.8 - 29.2 ng/mL Reference Ranges for Prolact in in female patients <18 years old have not been established. Specimen Blood - Venous blood (substance) Performing Organization Address [facility]/ZIP Code Phon e Number [facility] LABORATORY [address] [place] [address] SERVICES ESTRADIOL, ADULTS (04/28/2020 11:06 EST) Estradiol 40 See Note pg/mL [facility] Comment: LABORATORY SERVICES NOTE: FEMALE REFERENCE RANGES: MENSTRUATING ? By cycle day relative to LH peak Follicular ?(-12 to -4 days) ??20-144 pg/mL Midcycle ?(-3 to +2 days) ?? 64-357 pg/mL Luteal ?(+4 t0 +12 days) ??56-214 pg/mL POSTMENOPAUSAL ?<32 pg/mL *Cross reactivity with Fulve strant could lead to a falsely elevated estradiol result in patients treated with this drug. Specimen Blood - Venous blood (substance) Performing Organization Address City/[facility]/ZIP Code Phon e Number [facility] LABORATORY [address] [place] [address] SERVICES documented in this encounter Visit Diagnoses Not on filedocumented in this encounter
--- OUTSIDE RECORDS SUMMARY | 2021-10-22 15:43 | XMS_ITS | Encounter Summary ---
:1995 Demographics Home Phone Preferred Language Unknown Marital Status Unknown Orthodoxy Affiliation Unknown Race Unknown Ethnic Group Unknown Author Organization [facility] Address [address] [place] [address] Care Team Providers Name Role Phone Unavailable Primary Care Provider Unavailable Encounter Details Date Type Department Care Team Description 07/31/2021 Lab Requisition [facility] Vaishnavi Ma Encounter for other Pathology & [address] general examination Laboratory [place] [address] [facility] [phone] [place] [address] (Work) [phone] Social History Tobacco Use Types Packs/Day Years Used Date Never Assessed Sex Assigned at Date Recorded Not on file documented as of this encounter Plan of Treatment Not on filedocumented as of this encounter Procedures Procedure Name Priority Date/Time Associated Diagnosis Comme nts PAP TEST Today 07/28/2021 8:35 EDT Encounter for other R esults for this general examination procedur e are in the results section. documented in this encounter Results PAP TEST (07/28/2021 8:35 EDT) Specimens A. Cervix and/or [facility] MEDICAL Endocervix , ThinPrep CENTER Imaging System with LABORATORY Manual Evaluation SERVICES Specimen Adequacy Satisfactory for [facility] MEDICAL Evaluation - CENTER transformation zone LABORATORY component present SERVICES General Negative for [facility] intraepithelial CENTER lesion or malignancy LABORATORY SERVICES Attestation . [facility] signed by Harish timmons, LABORATORY TAMMY Mccloud( CP) SERVICES on 08/02/2021 at 1518 Clinical History See below [facility] LABORATORY SERVICES Performing Lab [facility] LAB [facility] LABORATORY SERVICES Scanned Images [facility] LABORATORY SERVICES Specimen Pap Test - Cervix and/or Endocervix Performing Organization Address City/State/ZIP Code Phon e Number [facility]OR[facility] [address] [place] [address] SERVICES documented in this encounter Visit Diagnoses Diagnosis Encounter for other general examination documented in this encounter
--- OUTSIDE RECORDS SUMMARY | 2021-10-22 15:43 | XMS_ITS | Encounter Summary ---
:1995 Demographics Home Phone Preferred Language Unknown Marital Status Unknown Faith Affiliation Unknown Race Unknown Ethnic Group Unknown Author Organization [facility] Address [address] [place] [address] Care Team Providers Name Role Phone Unavailable Primary Care Provider Unavailable Encounter Details Date Type Department Care Team Description 07/11/2021 Lab Requisition [facility] Outr Resulting Lab, Pathology & Laboratory Provider [facility] [address] [place] [address] Social History Tobacco Use Types Packs/Day Years Used Date Never Assessed Sex Assigned at Date Recorded Not on file documented as of this encounter Plan of Treatment Not on filedocumented as of this encounter Procedures Procedure Name Priority Date/Time Associated Comments Diagnosis HIV 1/2 ANTIGEN AND Routine 07/11/2021 14:50 Resu lts for this ANTIBODY, 4TH EDT procedure are in GENERATION the results section. documented in this encounter Results HIV 1/2 ANTIGEN AND ANTIBODY, 4TH GENERATION (07/11/2021 14:50 EDT) HIV 1 and 2 NegativeComment: If Negative [facility] Antibody/p24 acute HIV-1 LABORATORY Antigen, 4th infection is SERVICES Generation suspected in a high risk patient, submit plasma specimen for HIV-1 RNA quantitation test. Specimen Blood - Venous blood (substance) Narrative [facility] LABORATORY SERVICES - 07/13/2021 9:52 EDT Fourth Generation assay performed on the Siemens Centaur XPT. Performing Organization Address City/State/ZIP Code Phon e Number [facility] LABORATORY [address] [place] [address] SERVICES documented in this encounter Visit Diagnoses Not on filedocumented in this encounter
--- OUTSIDE RECORDS SUMMARY | 2021-10-22 15:43 | XMS_ITS | Clinical Summary ---
:1995 Demographics Home Phone Preferred Language Unknown Marital Status Unknown Islam Affiliation Unknown Race Unknown Ethnic Group Unknown Author Organization [facility] Address [address] [place] [address] Care Team Providers Name Role Phone Unavailable Primary Care Provider Unavailable Encounters Date Type Specialty Care Team Description 07/31/2021 Lab Requisition Clinical Laboratory Vaishnavi Ma nter for other general examina tion from Last 3 Months Social History Tobacco Use Types Packs/Day Years Used Date Never Assessed Sex Assigned at Date Recorded Not on file Plan of Treatment Health Maintenance Due Date Last Done Comments Hepatitis C Screen 1995 COVID-19 Vaccine (1) 2000 Procedures Procedure Name Priority Date/Time Associated Diagnosis Comme nts PAP TEST Today 07/28/2021 8:35 EDT Encounter for other R esults for this general examination procedur e are in the results section. from Last 3 Months Results PAP TEST (07/28/2021 8:35 EDT) Specimens A. Cervix and/or [facility] MEDICAL Endocervix , ThinPrep CENTER Imaging System with LABORATORY Manual Evaluation SERVICES Specimen Adequacy Satisfactory for [facility] MEDICAL Evaluation - CENTER transformation zone LABORATORY component present SERVICES General Negative for [facility] intraepithelial CENTER lesion or malignancy LABORATORY SERVICES Attestation . [facility] CENTER signed by Harish timmons LABORATORY TAMMY Mccloud( CP) SERVICES on 08/02/2021 at 1518 Clinical History See below [facility] LABORATORY SERVICES Performing Lab [facility] LAB [facility] LABORATORY SERVICES Scanned Images [facility] LABORATORY SERVICES Specimen Pap Test - Cervix and/or Endocervix Performing Organization Address City/State/ZIP Code Phon e Number [facility] LABORATORY [address] [place] [address] SERVICES from Last 3 Months
--- OUTSIDE RECORDS SUMMARY | 2021-10-22 15:43 | XMS_ITS | Encounter Summary ---
:1995 Demographics Home Phone Preferred Language Unknown Marital Status Unknown Quaker Affiliation Unknown Race Unknown Ethnic Group Unknown Author Organization [facility] Address [address] [place] [address] Care Team Providers Name Role Phone Unavailable Primary Care Provider Unavailable Encounter Details Date Type Department Care Team Description 07/11/2021 Lab Requisition [facility] Outr Resulting Lab, Pathology & Laboratory Provider [facility] [address] [place] [address] Social History Tobacco Use Types Packs/Day Years Used Date Never Assessed Sex Assigned at Date Recorded Not on file documented as of this encounter Plan of Treatment Not on filedocumented as of this encounter Procedures Procedure Name Priority Date/Time Associated Diagnosis Comme nts SYPHILIS SEROLOGY Routine 07/11/2021 14:50 Result s for this EDT procedure are i n the results section. documented in this encounter Results SYPHILIS SEROLOGY (07/11/2021 14:50 EDT) Pathologist Sig nature Syphilis Serology Negative Negative [facility] LABORATORY SERVICES Specimen Blood - Venous blood (substance) Performing Organization Address City/State/ZIP Code Phon e Number [facility] LABORATORY [address] [place] [address] SERVICES documented in this encounter Visit Diagnoses Not on filedocumented in this encounter
[2021-10-22 16:30] LABS: Bilirubin Negative (Negative); Blood Trace-intact (Negative); Clarity Clear (Clear); Glucose Negative (Negative); Ketones >=160 mg/dL (Negative); Leukocyte Esterase Trace (Negative); Nitrite Negative (Negative); Specific Gravity >= 1.030 (1.005-1.025); Urobilinogen 0.2 EU/dL (Up TO 0.2); pH 5.5 (5-8)
[2021-10-22 16:37] LABS: *AMPHETAMINES SCREEN URINE Negative (Negative); *BARBITURATES SCREEN URINE Negative (Negative); *BENZODIAZEPINES SCREEN URINE Negative (Negative); Cannabinoids THC Negative (Negative); Cocaine Screen,Urine Negative (Negative); METHADONE URINE SCREEN Negative (Negative); OPIATES URINE SCREEN Negative (Negative)
[2021-10-22 16:38] LABS: Tricyclic Antidepressants Negative (Negative)
[2021-10-22 16:43] LABS: Bacteria Few HPF (Negative); C & S Indicated? No/Sq. Contamination; Crystals Negative HPF (Negative); Epithelial Cells Many HPF (Negative); Mucus Negative (Negative)
--- NOTE | 2021-10-22 17:10 | W.PM.HP.N ---
Date of service: 10/22/21 Time of Service: 17:10 Assessment and Plan Assessment and plan (1) Tylenol overdose: Status: Acute Assessment and plan: Given the severity of her overdose of Tylenol patient will probably need continued N-acetylcysteine infusion out to 48 hours. I will repeat her BMP and LFTs tonight, and continue every 12 hour LFT monitoring. NAC protocol was started emergency department with a loading dose of 150 mg/kg over an hour followed by 50 mg/kg over 4 hours followed by 100 mg/kg over 16 hours. Critical care time spent interviewing and examining the patient, reviewing studies, discussing case with patient's nurse and consulting physicians was 60 minutes (2) Suicide attempt: Status: Acute Assessment and plan: Once patient is medically stable we will assess [facility] human services to evaluate for inpatient psychiatric treatment given the severity of her suicidal attempt and history of previous suicidal attempts. (3) Deliberate self-cutting: Status: Acute (4) Obstructive sleep apnea: Status: Chronic Assessment and plan: Patient formerly had CPAP machine but has not used it for quite some time. We will apply supplemental oxygen at night. History of Present Illness History of Present Illness Chief Complaint: Suicide attempt with Tylenol overdose Narrative: 26-year-old female with a history of depression and previous suicidal attempts presents to the emergency department began taking acetaminophen tablets 500 mg tablets last night and an undetermined time ingesting approximately 55 tablets of 500 mg each with the last dose taken a few hours prior to admission. She has no nausea vomiting or abdominal pain. She is also has evidence of self cutting with superficial linear excoriations to her wrist and forearm and right upper thigh. Patient was given activated charcoal and had some nausea and slight vomiting after the charcoal. N-acetylcysteine infusion was begun as her calculated total dose acetaminophen was 27.5 g which exceeds the 150 mg/kg toxic level. Basic labs including tox screen EKG screen CBC CMP were all obtained. Acetaminophen level came back 177 mcg/mL well above the toxic level. Patient was begun on the NAC IV protocol for 20-hour infusion. Initial CMP showed low potassium of 3.1 slightly elevated anion gap of 14.4 and a BUN of 19 creatinine 1.2. Surprisingly transaminases are within normal limits. Pro time was normal. Lipase and TSH were also normal. CBC was normal. Patient is admitted to the intensive care unit on a Mucomyst protocol with serial monitoring over LFTs. Mental health will be consulted to evaluate her for her suicidal behavior. Review of Systems All systems reviewed & are unremarkable except as noted in HPI and below PFSH All Active Problems (Updated 10/22/21 @ 17:41 by Alessio Dunn MD) Tylenol overdose (Acute) Suicide attempt (Acute) Deliberate self-cutting (Acute) PCOS (polycystic ovarian syndrome) (Chronic) Obstructive sleep apnea (Chronic) PSG 04/22/20 Adjustment disorder with mixed anxiety and depressed mood (Chronic) Per [facility] Psychiatry Hyperlipidemia (Chronic) IUD surveillance (Chronic) Mirena IUD inserted 06/29/21 Heavy menses (Chronic) Oligomenorrhea (Chronic) Obesity (Chronic) Medical History (Updated 10/22/21 @ 17:41 by Alesiso Dunn MD) H/O lead poisoning Childhood exposure from leaded paint Suicide attempt Tried to choke herself with scarf Surgical History No significant past surgical history Family History Mother Depression Hypertension Father Depression Asthma Hypertension Sister Ulcerative colitis Maternal Grandfather No problems noted. Maternal Grandmother Bladder cancer Paternal Grandfather Depression Paternal Grandmother No problems noted. Maternal Aunt Bipolar affective disorder Social History Smoking/Tobacco Use Status: Current every day Tobacco Type: e-cigarettes Tobacco: How many years used: 10 Second Hand Exposure: Yes Smoking risk assessment performed?: Yes Alcohol Intake: current Alcohol Intake frequency: a few times a month Alcohol type: beer, wine and hard liquor Drug use: Occasionally Substance use type: marijuana Caregiver/Support person: No Household members: family Housing: apartment Communication Needs: None Do you need help understanding health information?: Rarely Pets and animals: Yes (Parakeet, sugar glider,) Pets and animals: hamster(s) Sexually active: Yes Do you think of yourself as: bisexual Current gender identity: neither exclusively male nor female What is your relationship status?: never How often do you talk on the phone with friends or family?: twice per week How often do you get together with friends or relatives?: once per week How often do you attend buddhism or synagogue services?: decline to answer Do you belong to any clubs or organized social groups?: no Panel score (0-1 are the most socially isolated patients): 1 What type of physical activity do you participate in: walking Duration: 45-60 minutes/day Frequency: 3-4 times per week Jossy/Hoahaoism: No preference Special jossy needs: No Seatbelt use: always Helmet use: Yes Helmet use: always Drive intox or ride w/intox tram driver: No Do you feel safe at home: Yes Do you feel safe in your relationship?: Yes History History 0 Para Hx # Term Pregnancies Multiple births Hx # Pregnancies Ectopic pregnancies AB induced Hx Number of Living Children AB spontaneous Meds Allergies and Home Medications Allergies Allergy/AdvReac Type Severity Reaction Status Date / Time No Known Allergies Allergy Verified 08/31/21 10:42 Home Medications Medication Instructions Recorded Confirmed Type lactobacillus combination no.4 3 3,000 mmu cells PO DAILY 07/06/21 10/22/21 History billion cell capsule (Probiotic) wheat dextrin 3 gram/3.5 gram oral 3 g PO DAILY 07/06/21 10/22/21 History powder packet (Benefiber Clear Sugar Free(dextrin)) fluoxetine 10 mg capsule (Prozac) 10 mg PO DAILY #90 caps 07/28/21 10/22/21 Rx levonorgestrel 20 mcg/24 hours (7 1 device intrauterine ONCE 07/28/21 10/22/21 History yrs) 52 mg intrauterine device (Mirena) fluoxetine 20 mg capsule 20 mg PO DAILY #30 caps 10/19/21 10/22/21 Rx lamotrigine 150 mg tablet 150 mg PO BID #60 tabs 10/19/21 10/22/21 Rx Exam Narrative Exam Narrative: Alert and oriented x4 HEENT: Atraumatic normocephalic, pupils equally round reactive to light and accommodation, extraocular motion intact, TMs intact, nares moist and patent without exudate or bleeding, oropharynx noninjected without exudate, teeth in poor repair multiple caries, patient has lip ring and eyebrow ring Neck: Supple, nontender, without thyromegaly or lymphadenopathy or JVD. Normal carotid pulses Lungs: Clear to auscultation and percussion Heart: Regular rate and rhythm without murmur rub or gallop. Normal apical impulse Abdomen: Nondistended, normal bowel sounds, nontender to palpation or percussion, no organomegaly, no bruits, no palpable masses, obese abdomen Genitalia and rectal exam: Deferred Breasts: Deferred Extremities: Normal range of motion with normal strength. No peripheral cyanosis or edema. Normal pulses, multiple superficial abrasions from skin cutting over the left forearm no deep wounds and no signs of infection Neurologic: Cranial nerves II through XII grossly within normal limits. Normal strength and sensation over the face trunk and extremities. DTRs within normal limits. No tremors or asterixis. No dysdiadochokinesia. Results Labs Result diagrams: 10/22/21 12:37 10/22/21 12:37 Labs: Laboratory Results - last 24 hr 10/22/21 10/22/21 10/22/21 12:37 12:37 12:37 WBC 9.57 RBC 4.47 Hgb 12.2 Hct 38.1 MCV 85 MCH 27.3 MCHC 32.0 RDW 12.1 Plt Count 315 MPV 10.8 Immature Gran % 0.5 Neutrophils % 54.1 Lymphocytes % 38.0 Monocytes % 6.7 Eosinophils % 0.2 Basophils % 0.5 Nucleated RBC % 0.0 Absolute Neutrophils 5.17 Absolute Lymphocytes 3.64 H Absolute Monocytes 0.64 Absolute Eosinophils 0.02 Absolute Basophils 0.05 PT INR APTT VBG pH VBG pCO2 VBG pO2 VBG HCO3 VBG Total CO2 VBG O2 Saturation VBG Base Excess Sodium 139 Potassium 3.1 L Chloride 103 Carbon Dioxide 21.6 Anion Gap 14.4 H BUN 19 H Creatinine 1.2 H Estimated GFR/1.73 m2 54.30 Glucose 139 H Calcium 8.5 Magnesium Total Bilirubin 0.5 AST 21 ALT 23 Alkaline Phosphatase 58 Total Protein 8.1 Albumin 3.6 Lipase 84 TSH 0.95 Urine Color Urine Clarity Urine pH Ur Specific [place] Urine Protein Urine Ketones Urine Blood Urine Nitrite Urine Bilirubin Urine Urobilinogen Ur Leukocyte Esterase Urine RBC Urine WBC Ur Epithelial Cells Urine Crystals Urine Bacteria Urine Mucus Ur Culture Indicated? Urine Glucose Salicylates < 2.8 Urine Opiates Screen Urine Methadone Screen Acetaminophen 177 H* Ur Barbiturates Screen Ur Tricyclics Screen Ur Amphetamines Screen U Benzodiazepines Scrn Urine Cocaine Screen Ur THC Screen Ethyl Alcohol < 3.0 COVID-19 Source SARS-CoV-2 (PCR) 10/22/21 10/22/21 10/22/21 12:37 12:37 12:37 WBC RBC Hgb Hct MCV MCH MCHC RDW Plt Count MPV Immature Gran % Neutrophils % Lymphocytes % Monocytes % Eosinophils % Basophils % Nucleated RBC % Absolute Neutrophils Absolute Lymphocytes Absolute Monocytes Absolute Eosinophils Absolute Basophils PT 10.3 INR 1.0 APTT 25.5 VBG pH 7.36 VBG pCO2 37 L VBG pO2 56 VBG HCO3 21 L VBG Total CO2 19 L VBG O2 Saturation 90 VBG Base Excess -5 L Sodium Potassium Chloride Carbon Dioxide Anion Gap BUN Creatinine Estimated GFR/1.73 m2 Glucose Calcium Magnesium 1.9 Total Bilirubin AST ALT Alkaline Phosphatase Total Protein Albumin Lipase TSH Urine Color Urine Clarity Urine pH Ur Specific [place] Urine Protein Urine Ketones Urine Blood Urine Nitrite Urine Bilirubin Urine Urobilinogen Ur Leukocyte Esterase Urine RBC Urine WBC Ur Epithelial Cells Urine Crystals Urine Bacteria Urine Mucus Ur Culture Indicated? Urine Glucose Salicylates Urine Opiates Screen Urine Methadone Screen Acetaminophen Ur Barbiturates Screen Ur Tricyclics Screen Ur Amphetamines Screen U Benzodiazepines Scrn Urine Cocaine Screen Ur THC Screen Ethyl Alcohol COVID-19 Source SARS-CoV-2 (PCR) 10/22/21 10/22/21 10/22/21 14:25 14:25 14:25 WBC RBC Hgb Hct MCV MCH MCHC RDW Plt Count MPV Immature Gran % Neutrophils % Lymphocytes % Monocytes % Eosinophils % Basophils % Nucleated RBC % Absolute Neutrophils Absolute Lymphocytes Absolute Monocytes Absolute Eosinophils Absolute Basophils PT INR APTT VBG pH VBG pCO2 VBG pO2 VBG HCO3 VBG Total CO2 VBG O2 Saturation VBG Base Excess Sodium Potassium Chloride Carbon Dioxide Anion Gap BUN Creatinine Estimated GFR/1.73 m2 Glucose Calcium Magnesium Total Bilirubin AST ALT Alkaline Phosphatase Total Protein Albumin Lipase TSH Urine Color Cancelled Urine Clarity Cancelled Urine pH Cancelled Ur Specific [place] Cancelled Urine Protein Cancelled Urine Ketones Cancelled Urine Blood Cancelled Urine Nitrite Cancelled Urine Bilirubin Cancelled Urine Urobilinogen Cancelled Ur Leukocyte Esterase Cancelled Urine RBC Urine WBC Ur Epithelial Cells Urine Crystals Urine Bacteria Urine Mucus Ur Culture Indicated? Urine Glucose Cancelled Salicylates Urine Opiates Screen Cancelled Urine Methadone Screen Cancelled Acetaminophen Ur Barbiturates Screen Cancelled Ur Tricyclics Screen Cancelled Ur Amphetamines Screen Cancelled U Benzodiazepines Scrn Cancelled Urine Cocaine Screen Cancelled Ur THC Screen Cancelled Ethyl Alcohol COVID-19 Source Nasal/Nares SARS-CoV-2 (PCR) Negative 10/22/21 10/22/21 16:16 16:16 WBC RBC Hgb Hct MCV MCH MCHC RDW Plt Count MPV Immature Gran % Neutrophils % Lymphocytes % Monocytes % Eosinophils % Basophils % Nucleated RBC % Absolute Neutrophils Absolute Lymphocytes Absolute Monocytes Absolute Eosinophils Absolute Basophils PT INR APTT VBG pH VBG pCO2 VBG pO2 VBG HCO3 VBG Total CO2 VBG O2 Saturation VBG Base Excess Sodium Potassium Chloride Carbon Dioxide Anion Gap BUN Creatinine Estimated GFR/1.73 m2 Glucose Calcium Magnesium Total Bilirubin AST ALT Alkaline Phosphatase Total Protein Albumin Lipase TSH Urine Color Yellow Urine Clarity Clear Urine pH 5.5 Ur Specific [place] >= 1.030 H Urine Protein Negative Urine Ketones >=160 H Urine Blood Trace-intact H Urine Nitrite Negative Urine Bilirubin Negative Urine Urobilinogen 0.2 Ur Leukocyte Esterase Trace H Urine RBC 5-10 H Urine WBC 10-20 H Ur Epithelial Cells Many Urine Crystals Negative Urine Bacteria Few Urine Mucus Negative Ur Culture Indicated? No/Sq. Contamination Urine Glucose Negative Salicylates Urine Opiates Screen Negative Urine Methadone Screen Negative Acetaminophen Ur Barbiturates Screen Negative Ur Tricyclics Screen Negative Ur Amphetamines Screen Negative U Benzodiazepines Scrn Negative Urine Cocaine Screen Negative Ur THC Screen Negative Ethyl Alcohol COVID-19 Source SARS-CoV-2 (PCR) Last Vital Signs Temp 36.0 C L 10/22/21 16:20 Pulse 75 10/22/21 16:32 Resp 18 10/22/21 16:40 BP 136/64 10/22/21 16:32 Pulse Ox 99 10/22/21 16:40
[2021-10-22 17:56] LABS: ALT 25 U/L (14-59); AST 20 U/L (15-37); Albumin 3.3 g/dL (3.4-5.0); Alkaline Phosphatase 52 U/L (46-116); Anion Gap 12.8 mmol/L (3-11); BUN 17 mg/dL (7-18); Bilirubin, Direct 0.1 mg/dL (0.0-0.2); Bilirubin, Total 0.5 mg/dL (0.2-1.0); CO2 23.2 mmol/L (21.0-32.0); CREATININE 1.1 mg/dL (0.55-1.02); Calcium 8.3 mg/dL (8.5-10.1); Chloride 103 mmol/L (98-107); Glucose 167 mg/dL (74-106); Potassium 3.6 mmol/L (3.5-5.1); Sodium 139 mmol/L (136-145)
[2021-10-22 18:10] LABS: Acetaminophen 47 ug/mL (10-30)
[2021-10-22] MEDS: POTASSIUM CHLORIDE 20 MEQ/100 ML BAG 50 MEQ IVPB ×2 (18:46→20:50)
[2021-10-22] MEDS: Enoxaparin 40 MG/0.4 ML SYR SC (18:51)
[2021-10-23] VITALS (47 sets, daily range): BP systolic 106–152; BP diastolic 57–105; PULSE 42–102; RESP 13–32; TEMP 35.8–37.3; O2SAT 96–100
--- NOTE | 2021-10-23 07:30 | W.PULMCC ---
General Date of Service Date of service: 10/23/21 Time of Service: 07:30 Reason for Admission to ICU: Tylenol overdose Assessment and Plan Assessment and plan (1) Tylenol overdose: Status: Acute (2) Suicide attempt: Status: Acute Assessment and plan: This is a 26 yo female with multiple suicide attempts in the past who was admitted to the ICU for a suspected tylenol overdose. He initial level was only 47, which put her well under the curve for toxicity, however given her reported ingestion (17g) she was started on NAC. Her LFT's have been normal and her Tylenol level this morning was normal (<2). With this, I do think it is safe to stop the NAC. She is medically clear to speak with mental health at this point, and is safe to transfer out of the ICU. Recommendations Pulmonary: No acute concerns Cardiac: No acute concerns Renal: No acute concerns I&O: Intake & Output 10/20/21 10/21/21 10/22/21 10/23/21 23:59 23:59 23:59 23:59 Intake Total 2030.5 / 2030.5 Output Total 1900 / 1900 900 / 900 Balance 130.5 / 130.5 -900 / -900 Weight 112.1 kg Daily Fluid Goal:: even GI Nutrition: No acute concerns - LFT's normal Date of Last Bowel Movement: 10/21/21 Infectious Disease: No acute concerns Hematologic: No acute concerns Neurologic: Intentional Tyelenol overdose - repeat level is <2 - ok to stop NAC - ok to stop trending LFT's - safe to transfer out of ICU - CPSO - clear to talk to mental health Endocrine: No acute concerns Lines: PIV Prophylaxis: Lovenox Code Status: Resuscitation Status Full Code Subjective Critical and life-threatening events over the past 24 hours: This is a 26 yo female with multiple suicide attempts who is admitted for a tylenol overdose of unknown quantity (but reported 55 x 500mg tablets) with the last dose several hours within ED presentation. She was started on empiric NAC given the high reported amount ingested. She had some nausea but no abdominal pain or neurological symptoms. This morning I ordered a repeat level and it was found to be less than 2. It is unlikely she took as much as what she said, or it was taken over a very prolonged amount of time. Her LFT's were normal and remain so this morning. This morning she offers no complaints. She does not have abdominal pain, no headaches or drowsiness. Exam Narrative Exam Narrative: Gen: NAD, normal respiratory effort, well-nourished HENT: PERRL, nasal turbinates normal without erythema or inflammation, moist oral mucosa, Mallampati 2, No LAD or JVD Chest: No respiratory distress, normal appearance of chest, clear to auscultation bilaterally, no crackles or wheezes, normal inspiratory effort Heart: regular rate and rhythym, no murmurs, rubs or gallops Abdomen: Non-distended, soft, non tender Extremities: No clubbing, edema, cyanosis, rashes Neuro: AAOx3 , non focal Psych: cooperative, appropriate mental affect Most Recent VS/Results Last Vital Signs Temp 35.8 C L 10/23/21 03:31 Pulse 43 L 10/23/21 02:01 Resp 19 10/23/21 02:30 BP 115/63 10/23/21 02:01 Pulse Ox 97 10/23/21 02:30 Laboratory Results - last 24 hr 10/22/21 10/22/21 10/22/21 12:37 12:37 12:37 WBC 9.57 RBC 4.47 Hgb 12.2 Hct 38.1 MCV 85 MCH 27.3 MCHC 32.0 RDW 12.1 Plt Count 315 MPV 10.8 Immature Gran % 0.5 Neutrophils % 54.1 Lymphocytes % 38.0 Monocytes % 6.7 Eosinophils % 0.2 Basophils % 0.5 Nucleated RBC % 0.0 Absolute Neutrophils 5.17 Absolute Lymphocytes 3.64 H Absolute Monocytes 0.64 Absolute Eosinophils 0.02 Absolute Basophils 0.05 PT INR APTT VBG pH VBG pCO2 VBG pO2 VBG HCO3 VBG Total CO2 VBG O2 Saturation VBG Base Excess Sodium 139 Potassium 3.1 L Chloride 103 Carbon Dioxide 21.6 Anion Gap 14.4 H BUN 19 H Creatinine 1.2 H Estimated GFR/1.73 m2 54.30 Glucose 139 H Calcium 8.5 Magnesium Total Bilirubin 0.5 Conjugated Bilirubin AST 21 ALT 23 Alkaline Phosphatase 58 Total Protein 8.1 Albumin 3.6 Lipase 84 TSH 0.95 Urine Color Urine Clarity Urine pH Ur Specific [place] Urine Protein Urine Ketones Urine Blood Urine Nitrite Urine Bilirubin Urine Urobilinogen Ur Leukocyte Esterase Urine RBC Urine WBC Ur Epithelial Cells Urine Crystals Urine Bacteria Urine Mucus Ur Culture Indicated? Urine Glucose Salicylates < 2.8 Urine Opiates Screen Urine Methadone Screen Acetaminophen 177 H* Ur Barbiturates Screen Ur Tricyclics Screen Ur Amphetamines Screen U Benzodiazepines Scrn Urine Cocaine Screen Ur THC Screen Ethyl Alcohol < 3.0 COVID-19 Source SARS-CoV-2 (PCR) 10/22/21 10/22/21 10/22/21 12:37 12:37 12:37 WBC RBC Hgb Hct MCV MCH MCHC RDW Plt Count MPV Immature Gran % Neutrophils % Lymphocytes % Monocytes % Eosinophils % Basophils % Nucleated RBC % Absolute Neutrophils Absolute Lymphocytes Absolute Monocytes Absolute Eosinophils Absolute Basophils PT 10.3 INR 1.0 APTT 25.5 VBG pH 7.36 VBG pCO2 37 L VBG pO2 56 VBG HCO3 21 L VBG Total CO2 19 L VBG O2 Saturation 90 VBG Base Excess -5 L Sodium Potassium Chloride Carbon Dioxide Anion Gap BUN Creatinine Estimated GFR/1.73 m2 Glucose Calcium Magnesium 1.9 Total Bilirubin Conjugated Bilirubin AST ALT Alkaline Phosphatase Total Protein Albumin Lipase TSH Urine Color Urine Clarity Urine pH Ur Specific [place] Urine Protein Urine Ketones Urine Blood Urine Nitrite Urine Bilirubin Urine Urobilinogen Ur Leukocyte Esterase Urine RBC Urine WBC Ur Epithelial Cells Urine Crystals Urine Bacteria Urine Mucus Ur Culture Indicated? Urine Glucose Salicylates Urine Opiates Screen Urine Methadone Screen Acetaminophen Ur Barbiturates Screen Ur Tricyclics Screen Ur Amphetamines Screen U Benzodiazepines Scrn Urine Cocaine Screen Ur THC Screen Ethyl Alcohol COVID-19 Source SARS-CoV-2 (PCR) 10/22/21 10/22/21 10/22/21 14:25 14:25 14:25 WBC RBC Hgb Hct MCV MCH MCHC RDW Plt Count MPV Immature Gran % Neutrophils % Lymphocytes % Monocytes % Eosinophils % Basophils % Nucleated RBC % Absolute Neutrophils Absolute Lymphocytes Absolute Monocytes Absolute Eosinophils Absolute Basophils PT INR APTT VBG pH VBG pCO2 VBG pO2 VBG HCO3 VBG Total CO2 VBG O2 Saturation VBG Base Excess Sodium Potassium Chloride Carbon Dioxide Anion Gap BUN Creatinine Estimated GFR/1.73 m2 Glucose Calcium Magnesium Total Bilirubin Conjugated Bilirubin AST ALT Alkaline Phosphatase Total Protein Albumin Lipase TSH Urine Color Cancelled Urine Clarity Cancelled Urine pH Cancelled Ur Specific [place] Cancelled Urine Protein Cancelled Urine Ketones Cancelled Urine Blood Cancelled Urine Nitrite Cancelled Urine Bilirubin Cancelled Urine Urobilinogen Cancelled Ur Leukocyte Esterase Cancelled Urine RBC Urine WBC Ur Epithelial Cells Urine Crystals Urine Bacteria Urine Mucus Ur Culture Indicated? Urine Glucose Cancelled Salicylates Urine Opiates Screen Cancelled Urine Methadone Screen Cancelled Acetaminophen Ur Barbiturates Screen Cancelled Ur Tricyclics Screen Cancelled Ur Amphetamines Screen Cancelled U Benzodiazepines Scrn Cancelled Urine Cocaine Screen Cancelled Ur THC Screen Cancelled Ethyl Alcohol COVID-19 Source Nasal/Nares SARS-CoV-2 (PCR) Negative 10/22/21 10/22/21 10/22/21 16:16 16:16 17:24 WBC RBC Hgb Hct MCV MCH MCHC RDW Plt Count MPV Immature Gran % Neutrophils % Lymphocytes % Monocytes % Eosinophils % Basophils % Nucleated RBC % Absolute Neutrophils Absolute Lymphocytes Absolute Monocytes Absolute Eosinophils Absolute Basophils PT INR APTT VBG pH VBG pCO2 VBG pO2 VBG HCO3 VBG Total CO2 VBG O2 Saturation VBG Base Excess Sodium Potassium Chloride Carbon Dioxide Anion Gap BUN Creatinine Estimated GFR/1.73 m2 Glucose Calcium Magnesium Total Bilirubin Conjugated Bilirubin AST ALT Alkaline Phosphatase Total Protein Albumin Lipase TSH Urine Color Yellow Urine Clarity Clear Urine pH 5.5 Ur Specific [place] >= 1.030 H Urine Protein Negative Urine Ketones >=160 H Urine Blood Trace-intact H Urine Nitrite Negative Urine Bilirubin Negative Urine Urobilinogen 0.2 Ur Leukocyte Esterase Trace H Urine RBC 5-10 H Urine WBC 10-20 H Ur Epithelial Cells Many Urine Crystals Negative Urine Bacteria Few Urine Mucus Negative Ur Culture Indicated? No/Sq. Contamination Urine Glucose Negative Salicylates Urine Opiates Screen Negative Urine Methadone Screen Negative Acetaminophen 47 H Ur Barbiturates Screen Negative Ur Tricyclics Screen Negative Ur Amphetamines Screen Negative U Benzodiazepines Scrn Negative Urine Cocaine Screen Negative Ur THC Screen Negative Ethyl Alcohol COVID-19 Source SARS-CoV-2 (PCR) 10/22/21 17:24 WBC RBC Hgb Hct MCV MCH MCHC RDW Plt Count MPV Immature Gran % Neutrophils % Lymphocytes % Monocytes % Eosinophils % Basophils % Nucleated RBC % Absolute Neutrophils Absolute Lymphocytes Absolute Monocytes Absolute Eosinophils Absolute Basophils PT INR APTT VBG pH VBG pCO2 VBG pO2 VBG HCO3 VBG Total CO2 VBG O2 Saturation VBG Base Excess Sodium 139 Potassium 3.6 Chloride 103 Carbon Dioxide 23.2 Anion Gap 12.8 H BUN 17 Creatinine 1.1 H Estimated GFR/1.73 m2 >= 60.00 Glucose 167 H Calcium 8.3 L Magnesium Total Bilirubin 0.5 Conjugated Bilirubin 0.1 AST 20 ALT 25 Alkaline Phosphatase 52 Total Protein 8.0 Albumin 3.3 L Lipase TSH Urine Color Urine Clarity Urine pH Ur Specific [place] Urine Protein Urine Ketones Urine Blood Urine Nitrite Urine Bilirubin Urine Urobilinogen Ur Leukocyte Esterase Urine RBC Urine WBC Ur Epithelial Cells Urine Crystals Urine Bacteria Urine Mucus Ur Culture Indicated? Urine Glucose Salicylates Urine Opiates Screen Urine Methadone Screen Acetaminophen Ur Barbiturates Screen Ur Tricyclics Screen Ur Amphetamines Screen U Benzodiazepines Scrn Urine Cocaine Screen Ur THC Screen Ethyl Alcohol COVID-19 Source SARS-CoV-2 (PCR) Review of Systems All systems reviewed & are unremarkable except as noted in HPI and below Time spent with patient Time spent in Critical Care: 35 Time spent in Critical care included: Chart review, Documenting critically ill care, Time at immediate bedside, Discussing critically ill care with other medical staff and Discussing care with family members
[2021-10-23 08:23] LABS: INR 1.1 (0.9-1.1); Prothrombin Time 11.3 sec (9.3-11.0)
[2021-10-23 08:30] LABS: ALT 20 U/L (14-59); AST 17 U/L (15-37); Albumin 3.1 g/dL (3.4-5.0); Alkaline Phosphatase 46 U/L (46-116); Anion Gap 7.5 mmol/L (3-11); BUN 9 mg/dL (7-18); Bilirubin, Total 0.5 mg/dL (0.2-1.0); CO2 25.5 mmol/L (21.0-32.0); CREATININE 0.9 mg/dL (0.55-1.02); Calcium 8.6 mg/dL (8.5-10.1); Chloride 110 mmol/L (98-107); Glucose 89 mg/dL (74-106); Potassium 3.9 mmol/L (3.5-5.1); Sodium 143 mmol/L (136-145); Total Protein 7.3 g/dL (6.4-8.2)
[2021-10-23 08:32] LABS: Acetaminophen < 2 ug/mL (10-30)
--- NOTE | 2021-10-23 12:06 | NUR.NOTE ---
Mental health currently in room. Nursing Note:
--- NOTE | 2021-10-23 15:07 | PDOC.CMSAFE ---
- If Service Date Differs Date of service: 10/23/21 Time of Service: 15:07 Care Management Safety Plan Status: Voluntary - Reason for Wait Reason for Wait: Inpatient Admission VOLUNTARY FOR INPATIENT PSYCHIATRIC STABILIZATION. Patient is appropriate in all interactions since arriving at [facility]; Pt has demonstrated appropriate coping and communication skills, has articulated his or her needs and concerns and is fully engaged during staff interactions. Meghan arrived at the ED after an intentional overdose of Tylenol. Once she became medically cleared, she was screened by [facility], to whom she reported having fleeting suicidal thoughts, and having acted upon them impulsively. She is agreeable to voluntary inpatient psychiatric treatment. CM discussed the safety plan with CHLOE Lima, who is in agreement with all items. Safety plan has been established with patient, and care team, to adhere to patient goals, identify restrictions based on behavioral status, address nutrition, and determine allowed personal belongings, tools for hygiene and personal care. Determine level of activity including ambulation, level of supervision, visitors, and determine privileges based on behaviors and level of engagement by pt. SAFETY PLAN: 1. Will remain on suicide precautions. In Paper Clothes 2. Will remain in room under direct supervision of one-on-one staff at all times provided by [employer]; KEITH, DRUM PULLER awake overnight counselor. 3. May have paper cups, plates, finger foods as well as a cardboard spoon with which to eat meals. 4. Follow [facility] Management of the Admitted Behavioral Health Patient policy. 5. Comfort bath system only, shower permitted with escort at RN discretion. 6. Personal belongings-soft items, such as their stuffed animal, permitted at RN discretion. 7. Visitors- family, during visiting hours. 8. Activities: soft cart items, TV, tablet for music/movies approved per RN discretion. Pt has a hospital fan and a hospital cup in her room. 9. Bathroom privileges with escort in the ED, available in room without limitation on M/S. 10. Phone: incoming/outgoing calls, via cordless phone at RN discretion. 11. Due to VOLUNTARY status, if patient wishes to leave [facility], staff will contact [facility] Crisis Screener ([phone]) and On-Call Jboss Developer ([phone]) as soon as possible. In the event of elopement, notify [facility] Police ([phone]). Patient is currently voluntarily at [facility] and seeking inpatient admission when a bed becomes available. [facility] Frontline Oil Laboratory Analyst will continue seeking placement. Please contact the Correction Warden Jboss Developer ([phone]) and [facility] Oil Laboratory Analyst ([phone]) for any needed changes in the Safety Plan. Safety plan has been provided to interdepartmental care team.
--- NOTE | 2021-10-23 17:05 | PDOC.MHCN ---
Date of service: 10/23/21 Time of Service: 12:05 Mental Health Crisis Note Presenting Issue How did you arrive at the ED and why did you come: Client intentionally overdosed on OTC Precipitating Factors Client is not currently endosring SI but stated she has fleeting thoughts of SI for the past year. Disposition BEHAVIOR: Unremarkable EYE CONTACT: direct MOOD: Depressed anxious AFFECT: congruant with mood APPETITE: no change SLEEP(trouble falling/staying asleep: disregulated Plan voluntarily seeking placement Signature Clinician's Name/Title: Jany COLLINS
--- NOTE | 2021-10-23 17:33 | CMPROGNOTE_ITS ---
- If Service Date Differs Date of service: 10/23/21 Time of Service: 17:33 Care Management Progress Note S/O: Meghan was lying in bed in the ICU when CM met with them. MD cleared them medically today, therefore they will move out of the ICU to med/surge this afternoon. They reported that they have met with [facility] screeners, and is agreeable to inpatient psychiatric treatment. CM discussed the process, as well as the plan for safety while Meghan is awaiting treatment. They asked for their phone, CM explained that having a personal cell phone is not permitted, but that they can use the hospital phone to make incoming/outgoing calls. While meeting, Meghan's mother arrived, and asked for a letter to inform Meghan's work that they will not be at work. CM provided a letter to verify that Meghan is currently hospitalized. Meghan also stated that she has a scheduled telehealth visit with her therapist on morning at 10am. CM stated that if they are likely to be at [facility] during that time, it can be arranged for them to meet, as long as their therapist is in agreement with meeting. Meghan has some items in their room, including a stuffed animal, a hospital fan, and a hospital cup. CM discussed these items with their RN and added them to the safety plan. CM will continue to follow. A: Meghan is a 26 year old female admitted to [facility] on 10/22/21 for SI, tylenol overdose. P: Meghan is voluntary for inpatient psychiatric treatment, awaiting a bed offer. [facility] reports sending the referral to facilities, CM sent medical information to [facility], as requested. She will transport via Animal [employer] [facility] EMS, depending on availability at the time of acceptance to facility. She will follow up with [facility], her PCP and discharge plan of care. CM will continue to follow.
--- NOTE | 2021-10-23 17:48 | W.PM.PROGNOT ---
Date of Service Date of service: 10/23/21 Time of Service: 17:48 Assessment and Plan Assessment and plan (1) Tylenol overdose: Status: Acute Assessment and plan: Acetaminophen level now undetectable. LFTs have not been elevated. Stopped NAC. Medically cleared for mental health evaluation. (2) Suicide attempt: Status: Acute Assessment and plan: She was evaluated by [facility]. She is voluntary and is amenable to inpatient care. (3) Deliberate self-cutting: Status: Acute (4) Obstructive sleep apnea: Status: Chronic Assessment and plan: Patient formerly had CPAP machine but has not used it for quite some time. We will apply supplemental oxygen at night. Subjective Subjective Patient reports: no new complaints, tolerating a regular diet and afebrile; denies nausea, vomiting or shortness of breath Exam Narrative Exam Narrative: Alert and oriented x4 HEENT: sclera clear. Lungs: Clear to auscultation. NOrmal WOB. Heart: Regular rate and rhythm without murmur. Abdomen: Nondistended, nontender. Extremities:No edema, calf tenderness. Objective Last Vital Signs Temp 37.3 C 10/23/21 15:45 Pulse 77 10/23/21 15:45 Resp 21 10/23/21 15:45 BP 134/88 10/23/21 15:45 Pulse Ox 96 10/23/21 15:45 Laboratory Results - last 24 hr 10/22/21 10/22/21 10/23/21 17:24 17:24 07:40 PT INR Sodium 139 143 Potassium 3.6 3.9 Chloride 103 110 H Carbon Dioxide 23.2 25.5 Anion Gap 12.8 H 7.5 BUN 17 9 Creatinine 1.1 H 0.9 Estimated GFR/1.73 m2 >= 60.00 >= 60.00 Glucose 167 H 89 Calcium 8.3 L 8.6 Total Bilirubin 0.5 0.5 Conjugated Bilirubin 0.1 AST 20 17 ALT 25 20 Alkaline Phosphatase 52 46 Total Protein 8.0 7.3 Albumin 3.3 L 3.1 L Acetaminophen 47 H 10/23/21 10/23/21 07:40 07:40 PT 11.3 H INR 1.1 Sodium Potassium Chloride Carbon Dioxide Anion Gap BUN Creatinine Estimated GFR/1.73 m2 Glucose Calcium Total Bilirubin Conjugated Bilirubin AST ALT Alkaline Phosphatase Total Protein Albumin Acetaminophen < 2
[2021-10-23] MEDS: Enoxaparin 40 MG/0.4 ML SYR SC (18:13)
[2021-10-23] MEDS: lamoTRIgine 100 MG TAB 150 MG PO (19:22)
[2021-10-24 04:29] VITALS: BP 119/82; PULSE 59; RESP 16; TEMP 36.5; O2SAT 100
[2021-10-24 06:25] LABS: ALT 21 U/L (14-59); AST 17 U/L (15-37); Albumin 3.1 g/dL (3.4-5.0); Alkaline Phosphatase 46 U/L (46-116); Anion Gap 5.4 mmol/L (3-11); BUN 15 mg/dL (7-18); Bilirubin, Total 0.4 mg/dL (0.2-1.0); CO2 25.6 mmol/L (21.0-32.0); Calcium 8.7 mg/dL (8.5-10.1); Chloride 109 mmol/L (98-107); Glucose 88 mg/dL (74-106); Potassium 3.9 mmol/L (3.5-5.1); Sodium 140 mmol/L (136-145); Total Protein 7.2 g/dL (6.4-8.2)
[2021-10-24 07:57] VITALS: BP 138/84; PULSE 72; RESP 18; TEMP 36.4; O2SAT 99
[2021-10-24] MEDS: lamoTRIgine 100 MG TAB 150 MG PO (08:54)
[2021-10-24] MEDS: FLUoxetine 10 MG TAB PO (08:54)
[2021-10-24] MEDS: FLUoxetine 20 MG CAP PO (08:54)
--- NOTE | 2021-10-24 15:19 | W.PM.DS.N ---
Date of service: 10/24/21 Time of Service: 15:19 DS: Diagnosis Discharge Diagnosis (1) Tylenol overdose: Status: Acute (2) Suicide attempt: Status: Acute (3) Deliberate self-cutting: Status: Acute (4) Obstructive sleep apnea: Status: Chronic Discharge Plan Disposition Patient Disposition: [facility] Condition: Fair Discharge Details Reason For Visit: Suicidal Ideation,Acetaminophen Overdose Admit Date/Time: 10/22/21 14:20 Admit Provider: Alessio Dunn Attending Provider: Alessio Dunn Primary Care Provider: [facility] Course Hospital Course: 26-year-old female with a history of depression and previous suicidal attempts presents to the emergency department began taking acetaminophen tablets 500 mg tablets last night and an undetermined time ingesting approximately 55 tablets of 500 mg each with the last dose taken a few hours prior to admission.? She has no nausea vomiting or abdominal pain.? She is also has evidence of self cutting with superficial linear excoriations to her wrist and forearm and right upper thigh.? Patient was given activated charcoal and had some nausea and slight vomiting after the charcoal.? N-acetylcysteine infusion was begun as her calculated total dose acetaminophen was 27.5 g which exceeds the 150 mg/kg toxic level.? Basic labs including tox screen EKG screen CBC CMP were all obtained.? Acetaminophen level came back 177 mcg/mL well above the toxic level.? Patient was begun on the NAC IV protocol for 20-hour infusion. Initial CMP showed low potassium of 3.1 slightly elevated anion gap of 14.4 and a BUN of 19 creatinine 1.2.? Surprisingly transaminases are within normal limits.? Pro time was normal.? Lipase and TSH were also normal.? CBC was normal.? Patient is admitted to the intensive care unit on a Mucomyst protocol with serial monitoring over LFTs.? Mental health will be consulted to evaluate her for her suicidal behavior. Her potassium normalized. and her creatinine improved to 1.0. She continued on NAC until her acetaminophen level was negative. She remained calm, cooperative during this stay. She voluntarily agreed to inpatient psychiatric evaluation and treatment. Transferring to [facility] for further psychiatric care. Home Meds and New Rx's Prescriptions: Continued Benefiber Clear SF (dextrin) 3 gram/3.5 gram powder in packet 3 g PO DAILY Probiotic 3 billion cell capsule 3,000 mmu cells PO DAILY Rx Instructions: administer with a meal Mirena 20 mcg/24 hours (7 yrs) 52 mg intrauterine device 1 device intrauterine ONCE Rx Instructions: as a single dose lamotrigine 150 mg tablet 150 mg PO BID Qty: 60 0RF fluoxetine 20 mg capsule 20 mg PO DAILY Qty: 30 0RF fluoxetine [Prozac] 10 mg capsule 10 mg PO DAILY Qty: 90 3RF Discharge Instructions Activity:: Activity as Tolerated Equipment/Supplies:: No Equipment Needed Diet:: As Tolerated Discharge Orders Discharge Orders: Discharge Order (Routine); Ordered 10/24/21 Ordered By: Nikhil Mancera DS: Summary Time Spent with Patient providing and/or coordinating discharge services: Greater than 30 minutes Status at Discharge Functional status at discharge: independent ambulation Overall status at discharge: patient is not back to baseline Mental Status: mental status grossly normal Speech and Movement: speech and movement normal Mood: congruent mood Affect: normal affect Exam Narrative Exam Narrative: Alert and oriented x4 HEENT: sclera clear. Lungs: Clear to auscultation. Normal WOB. Heart: Regular rate and rhythm without murmur. Abdomen: Nondistended, nontender. Extremities:No edema, calf tenderness. Psych: affect is appropriate. Conversant. Makes eye contact. Psych Mental Status: mental status grossly normal Speech and Movement: speech and movement normal Mood: congruent mood Affect: normal affect DS: Data Vitals/I&O Vitals and I&O: Vital Signs Temperature 36.4 C L 10/24/21 07:57 Temperature Source Tympanic 10/24/21 07:57 Pulse 72 10/24/21 07:57 Pulse Rhythm Regular 10/24/21 09:15 Pulse 76 10/23/21 15:30 Respiratory Rate 18 10/24/21 07:57 Respiratory Effort Non-Labored 10/24/21 09:15 Respiratory Depth Normal 10/24/21 09:15 Respiratory Pattern Normal 10/24/21 09:15 Blood Pressure 138/84 10/24/21 07:57 Blood Pressure Mean 98 10/23/21 15:01 Blood Pressure Position Sitting 10/23/21 12:00 Pulse Oximetry 99 10/24/21 07:57 Oxygen Delivery Method Room Air 10/24/21 07:57 Oxygen Flow Rate 0 10/24/21 07:57 Pain Level 0 10/24/21 11:24 Comment 10/24/21 11:24 Intake & Output 10/23/21 10/24/21 10/24/21 23:59 11:59 23:59 Intake Total 480 / 1912.083 240 / 240 Output Total 600 / 2300 Balance -120 / -387.917 240 / 240 Weight 117.5 kg Intake: Oral 480 / 960 240 / 240 Output: Urine 600 / 2300 Other: Urine Color Light Freda Yellow Urine Appearance Clear Clear Urine Odor None Comment unable to asses Voiding Methods Toilet Toilet Data Completed and Pending Labs on day of discharge: Labs from last 24 hours 10/24/21 05:54 Sodium 140 Potassium 3.9 Chloride 109 H Carbon Dioxide 25.6 Anion Gap 5.4 BUN 15 Creatinine 1.0 Estimated GFR/1.73 m2 >= 60.00 Glucose 88 Calcium 8.7 Total Bilirubin 0.4 AST 17 ALT 21 Alkaline Phosphatase 46 Total Protein 7.2 Albumin 3.1 L PFSH All Active Problems Tylenol overdose (Acute) Suicide attempt (Acute) Deliberate self-cutting (Acute) PCOS (polycystic ovarian syndrome) (Chronic) Obstructive sleep apnea (Chronic) PSG 04/22/20 Adjustment disorder with mixed anxiety and depressed mood (Chronic) Per [facility] Psychiatry Hyperlipidemia (Chronic) IUD surveillance (Chronic) Mirena IUD inserted 06/29/21 Heavy menses (Chronic) Oligomenorrhea (Chronic) Obesity (Chronic) Medical History H/O lead poisoning Childhood exposure from leaded paint Suicide attempt Tried to choke herself with scarf Surgical History No significant past surgical history Family History Mother Depression Hypertension Father Depression Asthma Hypertension Sister Ulcerative colitis Maternal Grandfather No problems noted. Maternal Grandmother Bladder cancer Paternal Grandfather Depression Paternal Grandmother No problems noted. Maternal Aunt Bipolar affective disorder Social History Smoking/Tobacco Use Status: Current every day Tobacco Type: e-cigarettes Tobacco: How many years used: 10 Second Hand Exposure: Yes Smoking risk assessment performed?: Yes Alcohol Intake: current Alcohol Intake frequency: a few times a month Alcohol type: beer, wine and hard liquor Drug use: Occasionally Substance use type: marijuana Caregiver/Support person: No Household members: family Housing: apartment Communication Needs: None Do you need help understanding health information?: Rarely Pets and animals: Yes (Parakeet, sugar glider,) Pets and animals: hamster(s) Sexually active: Yes Do you think of yourself as: bisexual Current gender identity: neither exclusively male nor female What is your relationship status?: never How often do you talk on the phone with friends or family?: twice per week How often do you get together with friends or relatives?: once per week How often do you attend mormon or anabaptism services?: decline to answer Do you belong to any clubs or organized social groups?: no Panel score (0-1 are the most socially isolated patients): 1 What type of physical activity do you participate in: walking Duration: 45-60 minutes/day Frequency: 3-4 times per week Jossy/Roman Catholic: No preference Special jossy needs: No Seatbelt use: always Helmet use: Yes Helmet use: always Drive intox or ride w/intox limb driver: No Do you feel safe at home: Yes Do you feel safe in your relationship?: Yes History History 0 Para Hx # Term Pregnancies Multiple births Hx # Pregnancies Ectopic pregnancies AB induced Hx Number of Living Children AB spontaneous
[2021-10-24 15:28] VITALS: BP 110/73; PULSE 73; RESP 18; TEMP 36.4; O2SAT 100
--- NOTE | 2021-10-24 15:45 | NUR.NOTE ---
Nursing Note: At approximately 1540 on 10/24/21, this RN answered a call from CHLOE Zurita at [place]. This RN gave a nurse to nurse report on the pt. regarding pt.'s mentation, VS, pain level, head to toe assessment, psych/suicide risk assessment, medications administered, plan of care, etc. CHLOE Zurita verbalized understanding and presented with a few questions that were answered. CHLOE Zurita informed that pt. would be discharged around 1730. CHLOE Zurita asking to be called once the pt. leaves [facility]. This RN agrees to call. RN will reassess as necessary.
--- NOTE | 2021-10-24 16:20 | CMDISCH_ITS ---
- If Service Date Differs Date of service: 10/24/21 Time of Service: 16:20 LACE Index Scoring Tool - Questions: Length of Stay (in days): 2 Acuity (Admit via E.D.?): Yes E.D. Visits: 2 - Answers: Total Score: 7 Risk of Readmission: Low Risk Care Management Discharge Reason for Hospitalization: SI, tylenol overdose Discharge Plan: Meghan was transferred to [facility] today for inpatient psychiatric treatment. They are agreeable to this plan, and asked that CM inform their parents. CM called and spoke to Ramon, their father, and discussed the plan, which he is agreeable to as well. He stated that he would try to bring clothes to Meghan prior to her discharge, but if not, he will get them to her at . Meghan will transport via [facility]. They will follow up with [facility], their PCP, and their discharge plan of care. Patient/Family Education Needs: Review discharge instructions and expectations for the next level of care, discussion of self care needs including ask me three. Services Needed at Discharge: Psychiatric Facility ([facility]), Transportation ([facility]) - Disposition Disposition: [place] Transport via of: [employer]
--- NOTE | 2021-10-24 17:28 | PDOC.MHCN_ITS ---
Date of service: 10/24/21 Time of Service: 17:28 Mental Health Crisis Note Presenting Issue How did you arrive at the ED and why did you come: Client arrived via ambulance after she overdosed on tylenol. Precipitating Factors Client denied SI and HI today. No delusions were observed. Disposition BEHAVIOR: Client was cooperative and engaged however, it does not appear she has good insight to the seriousness of her choices. EYE CONTACT: Good MOOD: Happy and visiting with mother and sister. AFFECT: Congruent except when she smiled about taking the o.d. and why. APPETITE: Good SLEEP(trouble falling/staying asleep: Standard. Plan CLient was accepted to [place] today. She will be transported via [facility] around 6pm today. Signature Clinician's Name/Title: Vandana Patel MS, [facility] Emergency Services Clinician, [facility]
--- NOTE | 2021-10-24 18:09 | NUR.NOTE ---
Nursing Note: At approximately 1810 on 10/24/21, this RN called CHLOE Zurita at [place] to inform them that the pt. had been discharged at 1732 on 10/24/[address] was on their way down to [place]. CHLOE Zurita verbalized understanding and thanked this RN for the phone call.
== END 2021-10-24 17:32 | disposition short-term general hospital (02) | DRG 918 ==
LOC: ER 14:55 → ICU 15:42 → MS 10-23 15:49
PROVIDERS: Student in an Organized Health Care Education/Training Program; Admitting Provider Internal Medicine; Emergency Provider Emergency Medicine; PCP Nurse Practitioner Family; Visit Provider Internal Medicine
DX: T39.1X2A Poisoning by 4-Aminophenol derivatives, intentional self-harm, initial encounter (principal); Z68.41 Body mass index [BMI] 40.0-44.9, adult; S51.812A Laceration without foreign body of left forearm, initial encounter; S61.512A Laceration without foreign body of left wrist, initial encounter; S71.111A Laceration without foreign body, right thigh, initial encounter; X78.8XXA Intentional self-harm by other sharp object, initial encounter; G47.33 Obstructive sleep apnea (adult) (pediatric); F32.A Depression, unspecified; E87.6 Hypokalemia; E28.2 Polycystic ovarian syndrome; F43.23 Adjustment disorder with mixed anxiety and depressed mood; E78.5 Hyperlipidemia, unspecified; E66.9 Obesity, unspecified; F17.290 Nicotine dependence, other tobacco product, uncomplicated
CPT/HCPCS: 36410; 36415; 80048; 80053; 80076; 80307; 82805; 83690; 87635; 93005; 96361; 96365; 96366; 96375; 96376; 99285; J1650; 80320; 80329; 81003; 81015; 83735; 84443; 85025; 85610; 85730; 93010; 99232; 99239; 99291; J0132; J2405; J3480; J7060

== ENCOUNTER 2022-10-21 11:09 | Emergency (ER) | payer SELFPAY ==
[2022-10-21 11:36] VITALS: BP 124/75; PULSE 75; RESP 18; TEMP 37.3; O2SAT 100
--- NOTE | 2022-10-21 13:42 | ED.GENADUL_ITS ---
Discharge Plan Disposition Patient Disposition: Home Condition: Stable Discharge Details Clinical Impression: Gastroenteritis Primary Care Provider: Jacquelyn Ladd ED Provider: Savannah Ivory Home Meds and New Rx's Prescriptions: Continued Benefiber Clear SF (dextrin) 3 gram/3.5 gram powder in packet 3 g PO DAILY Mirena 20 mcg/24 hours (7 yrs) 52 mg intrauterine device 1 device intrauterine ONCE Rx Instructions: as a single dose cholecalciferol (vitamin D3) 10 mcg (400 unit) capsule 10 mcg PO DAILY fluoxetine [Prozac] 20 mg capsule 20 mg PO DAILY Qty: 90 3RF Rx Instructions: Please take 1 daily in addition to the 40mg dose lamotrigine 150 mg tablet 300 mg PO DAILY Qty: 180 3RF fluoxetine 40 mg capsule 40 mg PO DAILY Qty: 90 3RF Discharge Instructions Instructions: Gastroenteritis (ED) Additional Instructions: Please take the nausea medication as directed up to 3 times daily as needed for nausea vomiting. Please collect a stool specimen and follow-up with your PCP. Follow up with primary care provider in 3-5 days. Return to ED sooner if any worsening or concerns. Increase oral fluids. No evidence of urinary tract infection at this time. Referrals: Jacquelyn Ladd, OFFICE ASSOCIATE [Primary Care Provider] - 3 days Discharge Data Discharge Date/Time-TO BE ENTERED AT DEPARTURE: 10/21/22 15:37 Medical Decision Making 27-year-old female presents to the ER with a chief complaint of nausea vomiting diarrhea since Saturday. She reports that last episode of diarrhea was today. She has not vomited since Saturday. She also reports some lower back pain which radiated around into her pelvis which has resolved. She denies any vaginal discharge or bleeding. No vaginal itching. Upon examination she does have some right upper quadrant abdominal pain with palpation. Past medical history includes obstructive sleep apnea, she does have an IUD in place, heavy menses obesity, PCOS. She denies any recent travel or swimming. Urine ordered, urinalysis IV CBC CMP lipase liter of normal saline. Differential diagnosis includes but not limited to cholecystitis, gallstones, UTI, pyelonephritis, gastroenteritis. Labs are largely unremarkable, urinalysis shows small blood, 3-5 WBCs. Lipase within normal limits. Patient reports feeling better after fluids. Discussed home care and follow-up with PCP. Patient remained hemodynamically stable throughout entire stay. This text was generated using [employer] system, please disregard any oddities of phrase or misspellings. Lab Data Lab results reviewed: Yes I reviewed the patient's lab results. Labs: Laboratory Tests Range/Units 10/21/22 10/21/22 10/21/22 14:10 14:27 14:27 WBC (4.4-10.8) 10^3/uL 10.20 RBC (3.93-5.22) 10^6/uL 4.92 Hgb (11.2-15.7) g/dL 13.4 Hct (36.0-46.0) % 41.6 MCV (80-95) fL 85 MCH (27.0-33.0) pg 27.2 MCHC (32.0-36.0) % 32.2 RDW (11.7-14.6) % 12.2 Plt Count (130-400) 10^3/uL 267 MPV (8.0-11.0) fL 11.2 H Immature Gran % 0.3 Neutrophils % 70.5 Lymphocytes % 22.0 Monocytes % 6.4 Eosinophils % 0.3 Basophils % 0.5 Nucleated RBC % (0.0-0.3) % 0.0 Absolute Neutrophils (1.2-6.7) 10^3/uL 7.20 H Absolute Lymphocytes (1.2-3.4) 10^3/uL 2.24 Absolute Monocytes (0.1-0.8) 10^3/uL 0.65 Absolute Eosinophils (0.0-0.7) 10^3/uL 0.03 Absolute Basophils (0.0-0.2) 10^3/uL 0.05 Sodium (136-145) mmol/L 143 Potassium (3.5-5.1) mmol/L 4.2 Chloride (98-107) mmol/L 107 Carbon Dioxide (21.0-32.0) mmol/L 25.1 Anion Gap (3-11) mmol/L 10.9 BUN (7-18) mg/dL 12 Creatinine (0.55-1.02) mg/dL 1.0 Est GFR (CKD-EPI 2020) (mL/min/1.73m2) 79.19 Glucose (74-106) mg/dL 80 Calcium (8.5-10.1) mg/dL 9.1 Total Bilirubin (0.2-1.0) mg/dL 0.6 AST (15-37) U/L 23 ALT (14-59) U/L 20 Alkaline Phosphatase (46-116) U/L 71 Total Protein (6.4-8.2) g/dL 8.8 H Albumin (3.4-5.0) g/dL 3.9 Lipase (16-77) U/L 38 Urine Color (Yellow) Yellow Urine Clarity (Clear) Clear Urine pH (5-8) 5.5 Ur Specific [place] (1.005-1.025) 1.015 Urine Protein (Negative) mg/dL Negative Urine Ketones (Negative) mg/dL Negative Urine Blood (Negative) Small H Urine Nitrite (Negative) Negative Urine Bilirubin (Negative) Negative Urine Urobilinogen (Up to 0.2) mg/dL 0.2 Ur Leukocyte Esterase (Negative) Negative Urine RBC (0-2) HPF 0-2 Urine WBC (0-5) HPF 3-5 Ur Epithelial Cells (Negative) HPF Rare Urine Crystals (Negative) HPF Negative Urine Bacteria (Negative) HPF Rare Urine Casts (Negative) LPF Negative Urine Mucus (Negative) Trace Ur Culture Indicated? No Urine Glucose (Negative) mg/dL Negative HPI General Mode of arrival: ambulatory . Date/Time Provider Initiated Documentation: 10/21/22 13:20 . Limitations to Documentation: no limitations . Information obtained by: patient, RN notes reviewed and old records reviewed . HPI Narrative: 27-year-old female presents to the ER with a chief complaint of nausea vomiting diarrhea since Saturday. She reports that last episode of diarrhea was today. She has not vomited since Saturday. She also reports some lower back pain which radiated around into her pelvis which has resolved. She denies any vaginal discharge or bleeding. No vaginal itching. Upon examination she does have some right upper quadrant abdominal pain with palpation. Past medical history includes obstructive sleep apnea, she does have an IUD in place, heavy menses obesity, PCOS. She denies any recent travel or swimming. Related Data Home Medications Medication Instructions Recorded Confirmed wheat dextrin 3 gram/3.5 gram oral 3 g PO DAILY 07/06/21 11/30/21 powder packet (Benefiber Clear Sugar Free(dextrin)) levonorgestrel 21 mcg/24 hours (8 1 device intrauterine ONCE 07/28/21 10/21/22 yrs) 52 mg intrauterine device (Mirena) fluoxetine 40 mg capsule 40 mg PO DAILY #90 caps 11/15/21 12/28/21 lamotrigine 150 mg tablet 300 mg PO DAILY #180 tabs 11/15/21 12/28/21 cholecalciferol (vitamin D3) 10 10 mcg PO DAILY 11/30/21 10/21/22 mcg (400 unit) capsule fluoxetine 20 mg capsule (Prozac) 20 mg PO DAILY #90 caps 11/30/21 12/28/21 Previous Rx's Medication Instructions Recorded fluoxetine 40 mg capsule 40 mg PO DAILY #90 caps 11/15/21 lamotrigine 150 mg tablet 300 mg PO DAILY #180 tabs 11/15/21 fluoxetine 20 mg capsule (Prozac) 20 mg PO DAILY #90 caps 11/30/21 Allergies Allergy/AdvReac Type Severity Reaction Status Date / Time No Known Allergies Allergy Verified 11/30/21 08:43 General Stated Complaint: Nausea/Vomit/Diar MAICO: 3 Review of Systems All systems reviewed & are unremarkable except as noted in HPI and below Gastrointestinal Gastrointestinal: Reports as per HPI, Reports diarrhea (Watery), Reports nausea and Reports vomiting [facility] All Active Problems (Updated 10/21/22 @ 15:21 by Savannah Ivory NP) Gastroenteritis (Acute) Tylenol overdose (Acute ~09/2021) Suicide attempt (Acute ~09/2021) Deliberate self-cutting (Acute) PCOS (polycystic ovarian syndrome) (Chronic) Obstructive sleep apnea (Chronic) PSG 04/22/20 Adjustment disorder with mixed anxiety and depressed mood (Chronic) Per [facility] Psychiatry Hyperlipidemia (Chronic) IUD surveillance (Chronic) Mirena IUD inserted 06/29/21 Heavy menses (Chronic) Oligomenorrhea (Chronic) Obesity (Chronic) Medical History H/O lead poisoning Childhood exposure from leaded paint Suicide attempt Tried to choke herself with scarf Surgical History No significant past surgical history Family History Mother Depression Hypertension Father Depression Asthma Hypertension Sister Ulcerative colitis Maternal Grandfather No problems noted. Maternal Grandmother Bladder cancer Paternal Grandfather Depression Paternal Grandmother No problems noted. Maternal Aunt Bipolar affective disorder Social History Smoking/Tobacco Use Status: Current every day Tobacco Type: e-cigarettes Tobacco: How many years used: 10 Second Hand Exposure: Yes Smoking risk assessment performed?: Yes Alcohol Intake: current Alcohol Intake frequency: holidays/special occasions only Alcohol type: beer, wine and hard liquor Drug use: Daily Substance use type: marijuana Caregiver/Support person: No Household members: family Housing: apartment Communication Needs: None Do you need help understanding health information?: Rarely Pets and animals: Yes (Parakendraet, sugar glider,) Pets and animals: hamster(s) Sexually active: Yes Do you think of yourself as: bisexual Current gender identity: neither exclusively male nor female What is your relationship status?: never How often do you talk on the phone with friends or family?: twice per week How often do you get together with friends or relatives?: once per week How often do you attend gnosticism or sikhism services?: decline to answer Do you belong to any clubs or organized social groups?: no Panel score (0-1 are the most socially isolated patients): 1 What type of physical activity do you participate in: walking Duration: 45-60 minutes/day Frequency: 3-4 times per week Jossy/Evangelical: No preference Special jossy needs: No Seatbelt use: always Helmet use: Yes Helmet use: always 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 Appears stated age. Obese body habitus. Head: Normocephalic, no trauma. Eyes: Pupils PERRL, Red reflex noted, EOM's intact. Eyelids symmetrical without lesions, discharge, or swelling. ENT: Bilateral TM's WNL, External ear normal to inspection, no mastoid TTP, swelling, or erythema, Nasal turbinates WNL, no nasal discharge. Very poor dentition, Chest: RRR, Normal S1, S2, distal pulses intact. Resp: Lungs clear to auscultation bilaterally, no wheezes, rales, or rhonchi. Abdomen: Soft, non-distended, hypo-active bowel sounds all 4 quads. Tender with palpation right upper quadrant. Musculoskeletal: Normal gait, 5/5 strength to all four extremities. Skin: No suspicious rashes or lesions. Capillary refill less than 2 sec. Neurologic: Cranial nerves II-XII intact. Alert and oriented x 3. Motor: No deficits noted. Sensory: Intact bilaterally all 4 extremities. Hematologic/Lymphatic: No ecchymosis, no lymphadenopathy. Course Vital Signs Vital signs: Vital Signs Temperature 37.3 C 10/21/22 11:36 Pulse 75 10/21/22 11:36 Respiratory Rate 18 10/21/22 11:36 Blood Pressure 124/75 10/21/22 11:36 Pulse Oximetry 100 10/21/22 11:36 Temperature 37.3 C 10/21/22 11:36 Pulse 75 10/21/22 11:36 Respiratory Rate 18 10/21/22 11:36 Respiratory Effort Normal, Non-Labored 10/21/22 11:39 Blood Pressure 124/75 10/21/22 11:36 Blood Pressure Position Sitting 10/21/22 11:36 Pulse Oximetry 100 10/21/22 11:36
[2022-10-21] MEDS: Ondansetron O.D.T. 4 MG TABEF PO (14:35)
[2022-10-21 14:38] LABS: Abs Immature Grans 0.03 10^3/uL (0.0-0.06); Absolute Basophil Count 0.05 10^3/uL (0.0-0.2); Absolute Eosinophil Count 0.03 10^3/uL (0.0-0.7); Absolute Lymphocyte Count 2.24 10^3/uL (1.2-3.4); Absolute Monocyte Count 0.65 10^3/uL (0.1-0.8); Basophils % 0.5; Eosinophils % 0.3; HCT 41.6 % (36.0-46.0); HGB 13.4 g/dL (11.2-15.7); Immature Grans % 0.3; MCH 27.2 pg (27.0-33.0); MCHC 32.2 % (32.0-36.0); MCV 85 fL (80-95); MPV 11.2 fL (8.0-11.0); Monocytes % 6.4; Neutrophils % 70.5; Platelet Count 267 10^3/uL (130-400); RBC 4.92 10^6/uL (3.93-5.22); RDW 12.2 % (11.7-14.6); RDW-SD 37.2 fL
[2022-10-21] MEDS: Normal Saline 1,000 ML 1000 ML IV (14:39)
[2022-10-21 14:40] LABS: Bilirubin Negative (Negative); Blood Small (Negative); Clarity Clear (Clear); Glucose Negative (Negative); Ketones Negative (Negative); Leukocyte Esterase Negative (Negative); Nitrite Negative (Negative); Specific Gravity 1.015 (1.005-1.025); Urobilinogen 0.2 mg/dL (Up to 0.2); pH 5.5 (5-8)
[2022-10-21 14:56] LABS: Bacteria Rare HPF (Negative); C & S Indicated? No; Casts Negative LPF (Negative); Crystals Negative HPF (Negative); Epithelial Cells Rare HPF (Negative); Mucus Trace (Negative); RBC 0-2 HPF (0-2)
[2022-10-21 15:01] LABS: ALT 20 U/L (14-59); AST 23 U/L (15-37); Albumin 3.9 g/dL (3.4-5.0); Alkaline Phosphatase 71 U/L (46-116); Anion Gap 10.9 mmol/L (3-11); BUN 12 mg/dL (7-18); Bilirubin, Total 0.6 mg/dL (0.2-1.0); CO2 25.1 mmol/L (21.0-32.0); Calcium 9.1 mg/dL (8.5-10.1); Chloride 107 mmol/L (98-107); Estimated GFR 79.19 (mL/min/1.73m2); Glucose 80 mg/dL (74-106); Lipase 38 U/L (16-77); Potassium 4.2 mmol/L (3.5-5.1); Sodium 143 mmol/L (136-145); Total Protein 8.8 g/dL (6.4-8.2)
[2022-10-21 15:34] VITALS: BP 137/77; PULSE 61; RESP 18; O2SAT 100
[2022-10-21] MEDS: Ondansetron O.D.T. 4 MG TABEF, 3 TABS/BTL PO (15:34)
== END 2022-10-21 15:37 | disposition home or self-care (01) ==
PROVIDERS: Emergency Provider Registered Nurse Emergency; PCP Nurse Practitioner Family
DX: K52.9 Noninfective gastroenteritis and colitis, unspecified (principal)
CPT/HCPCS: 36415; 80053; 81025; 83690; 99283; 81003; 81015; 85025

== ENCOUNTER 2022-10-22 20:35 | Outpatient (REF) | payer SELFPAY ==
[2022-10-22 23:35] LABS: Campylobacter PCR Negative (Negative); Salmonella PCR Negative (Negative); Shiga Toxin PCR Negative (Negative); Shigella/Enteroinvasive Ecoli Negative (Negative)
== END 2022-10-22 20:36 | disposition home or self-care (01) ==
LOC: LBN 20:35
PROVIDERS: PCP Nurse Practitioner Family; Visit Provider Nurse Practitioner Family
DX: R19.7 Diarrhea, unspecified (principal)
CPT/HCPCS: 87505; 83630; 87177

== ENCOUNTER 2022-12-05 15:10 | Outpatient (REF) | payer SELFPAY ==
[2022-12-05 15:40] LABS: Abs Immature Grans 0.02 10^3/uL (0.0-0.06); Absolute Basophil Count 0.04 10^3/uL (0.0-0.2); Absolute Eosinophil Count 0.01 10^3/uL (0.0-0.7); Absolute Lymphocyte Count 1.95 10^3/uL (1.2-3.4); Absolute Monocyte Count 0.35 10^3/uL (0.1-0.8); Absolute Neutrophil Count 7.32 10^3/uL (1.2-6.7); Basophils % 0.4; Eosinophils % 0.1; HCT 40.2 % (36.0-46.0); HGB 12.9 g/dL (11.2-15.7); Immature Grans % 0.2; Lymphocytes % 20.1; MCH 27.6 pg (27.0-33.0); MCHC 32.1 % (32.0-36.0); MCV 86 fL (80-95); MPV 12.3 fL (8.0-11.0); Monocytes % 3.6; Neutrophils % 75.6; Platelet Count 285 10^3/uL (130-400); RBC 4.68 10^6/uL (3.93-5.22); RDW 12.5 % (11.7-14.6); RDW-SD 39.1 fL; WBC 9.69 10^3/uL (4.4-10.8)
[2022-12-05 16:01] LABS: ALT 20 U/L (14-59); AST 17 U/L (15-37); Albumin 3.8 g/dL (3.4-5.0); Alkaline Phosphatase 66 U/L (46-116); Anion Gap 12.1 mmol/L (3-11); BUN 15 mg/dL (7-18); Bilirubin, Total 0.3 mg/dL (0.2-1.0); CO2 22.9 mmol/L (21.0-32.0); CREATININE 0.9 mg/dL (0.55-1.02); Calcium 9.1 mg/dL (8.5-10.1); Chloride 107 mmol/L (98-107); Estimated GFR 89.86 (mL/min/1.73m2); Glucose 96 mg/dL (74-106); Lipase 38 U/L (16-77); Potassium 4.7 mmol/L (3.5-5.1); Sodium 142 mmol/L (136-145); Total Protein 7.9 g/dL (6.4-8.2)
== END 2022-12-05 15:11 | disposition home or self-care (01) ==
LOC: LBN 15:10
PROVIDERS: PCP Nurse Practitioner Family; Visit Provider Physician Assistant Medical
DX: R19.7 Diarrhea, unspecified (principal)
CPT/HCPCS: 80053; 83690; 87493; 85025

== ENCOUNTER 2022-12-06 10:19 | Outpatient (REF) | payer SELFPAY ==
[2022-12-06 13:21] LABS: C Diff PCR Negative (Negative)
[2022-12-07 11:37] LABS: Campylobacter PCR Negative (Negative); Salmonella PCR Negative (Negative); Shiga Toxin PCR Negative (Negative); Shigella/Enteroinvasive Ecoli Negative (Negative)
== END 2022-12-06 10:20 | disposition home or self-care (01) ==
LOC: LBN 10:19
PROVIDERS: PCP Nurse Practitioner Family; Visit Provider Physician Assistant Medical
DX: R19.7 Diarrhea, unspecified (principal)
CPT/HCPCS: 87329; 87493; 87505; 87177

== ENCOUNTER 2022-12-06 10:22 | Emergency (ER) | payer SELFPAY ==
[2022-12-06] VITALS (19 sets, daily range): BP systolic 115–148; BP diastolic 46–77; PULSE 51–81; RESP 18–20; TEMP 37; O2SAT 91–100
--- NOTE | 2022-12-06 10:45 | DI.CT_ITS ---
Exam(s) CT ABDOMEN PELVIS W EXAM: CT ABDOMEN PELVIS W CLINICAL HISTORY: N/V/D, RLQ TTP. TECHNIQUE: Imaging Protocol: Axial computed tomography images with coronal and sagittal reformatted images were created and reviewed CONTRAST MATERIAL: Intravenous: Omnipaque-350 100cc Oral: None COMPARISON: No exams were available for comparison FINDINGS: VISUALIZED LUNG BASES: No nodules nor pleural effusions evident. ABDOMEN: There is no ascites. LIVER: There are no focal hepatic lesions evident. No dilated intrahepatic ducts. GALLBLADDER/BILIARY: No obvious gallbladder pathology. CBD is not dilated. PANCREAS: Pancreatic and neck and uncinate process appear unremarkable as does the pancreatic tail. The axial images there is an area of hypodensity in the inferior aspect of the pancreatic body which appears to be volume averaging with adjacent fat when viewing the reconstructed sagittal and coronal images. SPLEEN: Spleen is not enlarged. No obvious intrasplenic lesions. Splenic and portal veins are paten t. ADRENALS: There are no significant adrenal masses. KIDNEYS:No cysts evident. No solid renal masses. No calculi nor hydronephrosis.. ABDOMINAL AORTA: Abdominal aorta is not enlarged. LYMPH NODES:There is no retroperitoneal nor paraaortic adenopathy. ABDOMINAL WALL: No evidence of significant anterior abdominal wall nor inguinal hernia. GI: There is no evidence of bowel obstruction, free air, nor abscess. No evidence of obvious appendicitis nor diverticulitis. However, the appearance of the colon wall th e level the hepatic flexure and transverse colon may reflect colitis. Terminal ileum appears unremar kable. Sigmoid appears unremarkable. PELVIS: GI: No evidence of appendicitis.No evidence of sigmoid diverticulitis. LYMPH NODES: There is slightly prominent lymph nodes in the right-side mesentery, these measuring les s than 1 cm. No gross lymphadenopathy evident. REPRODUCTIVE: There is an IUD in good position in the uterine canal. No abnormal adnexal masses nor free fluid in the pelvis. Ovaries exhibit upper normal size this age group. There are no extraovari an adnexal masses. URINARY BLADDER: There is some uniform thickening of the urinary bladder wall which may be exaggerate d by under distension here. However, may also be seen with cystitis. OSSEOUS: No fractures and no significant osseous lesions. IMPRESSION: 1. No evidence of obvious appendicitis nor diverticulitis. 2. However, the appearance of the hepatic flexure of the colon and proximal 2/3 of the transverse col on exhibit appearance of possible colitis pattern. 3. Urinary bladder wall is uniformly thickened which may be related to cystitis, under distension, or a combination of both. 4. There is an IUD in the endometrial canal in in satisfactory position. Both ovaries upper normal s ize. No free fluid in the pelvis. Called to ER provider. RADIATION DOSE DELIVERED: 1,596.05mGy.cm Total DLP DATA REPOSITORY: All CT scans at this facility are submitted to the National Radiology Data Registry (NRDR) Dose Index Registry (DIR) with the [employer] (A[employer]). RADIATION OPTIMIZATION: All CT scans at this facility use at least one of these dose optimization te chniques: automated exposure control; mA and/or kV adjustment per patient size (includes targeted exa ms where dose is matched to clinical indication); or iterative reconstruction.
--- NOTE | 2022-12-06 10:55 | ED.GENADUL_ITS ---
Discharge Plan Disposition Patient Disposition: Home Discharge Details Chief Complaint: Nausea/Vomit/Diar Clinical Impression: Colitis Primary Care Provider: Jacquelyn Ladd ED Provider: Adrianne Fitch Home Meds and New Rx's Prescriptions: No Action Mirena 20 mcg/24 hours (7 yrs) 52 mg intrauterine device 1 device intrauterine ONCE Rx Instructions: as a single dose ondansetron 8 mg tablet,disintegrating 8 mg PO Q8H PRN (Reason: nausea and vomiting) Qty: 30 0RF Discharge Instructions Instructions: Colitis (ED) Additional Instructions: Take zofran up to every 8 hours for vomiting. Tylenol/ibuprofen over the counter as needed for pain; follow the directions on the bottle. Call your primary care doctor today to schedule an appointment within 5 days to follow up on your visit here. Return to the emergency department for new or worsening symptoms, including new/different/worse pain, blood in your stool, inability to keep down fluids, fever, or if you have any other concerns. Stand Alone Forms: Work Release Referrals: Jacquelyn Ladd, FRANCESCA [Primary Care Provider] - Medical Decision Making 27yo F with PCOS, IBS, presenting for diarrhea and nausea x 4 days and vomiting x 1 starting this morning. Seen yesterday outpatient and prescribed zofran (has not picked up yet), reports reassuring labs and negative test yesterday. Vital signs reassuring on arrival, on exam tender to right abdomen worse in the RLQ with some suprapubic tenderness as well. Not septic. Zofran for symptoms. CBC with leukocytosis to 15, no anemia. CMP reassuring with no acidosis or electrolyte abnormalities. Lipase normal, not concerned for pancreatitis. UA negative for infection. Stool sample pending from outpatient. CT independently reviewed, no obstruction or free fluid on my view, agree with radiology read below- consistent with colitis. On reassessment she has improved nausea, no further vomiting and was able to tolerate PO. Pain improved, repeat abdomen exam reassuring with only mild tenderness, no peritoneal signs. Discharged home with zofran to followup with PCP; discharge instructions and return precatuions were reivewed with patient who verbalized understanding. All questions were answered and she is in full agreement with the plan. Imaging Data Radiologic Study: Radiologist's impression: IMPRESSION: 1. No evidence of obvious appendicitis nor diverticulitis. 2. However, the appearance of the hepatic flexure of the colon and proximal 2/3 of the transverse colon exhibit appearance of possible colitis pattern. 3. Urinary bladder wall is uniformly thickened which may be related to cystitis, under distension, or a combination of both. 4. There is an IUD in the endometrial canal in in satisfactory position.? Both ovaries upper normal size.? No free fluid in the pelvis. Lab Data Lab results reviewed: Yes I reviewed the patient's lab results. Labs: Laboratory Tests Range/Units 12/06/22 12/06/22 12/06/22 11:00 11:00 11:12 WBC (4.4-10.8) 10^3/uL 15.03 H RBC (3.93-5.22) 10^6/uL 4.78 Hgb (11.2-15.7) g/dL 13.1 Hct (36.0-46.0) % 40.9 MCV (80-95) fL 86 MCH (27.0-33.0) pg 27.4 MCHC (32.0-36.0) % 32.0 RDW (11.7-14.6) % 12.3 Plt Count (130-400) 10^3/uL 301 MPV (8.0-11.0) fL 11.1 H Immature Gran % 0.3 Neutrophils % 81.1 Lymphocytes % 13.7 Monocytes % 4.5 Eosinophils % 0.1 Basophils % 0.3 Nucleated RBC % (0.0-0.3) % 0.0 Absolute Neutrophils (1.2-6.7) 10^3/uL 12.19 H Absolute Lymphocytes (1.2-3.4) 10^3/uL 2.06 Absolute Monocytes (0.1-0.8) 10^3/uL 0.68 Absolute Eosinophils (0.0-0.7) 10^3/uL 0.02 Absolute Basophils (0.0-0.2) 10^3/uL 0.05 Sodium (136-145) mmol/L 142 Potassium (3.5-5.1) mmol/L 3.9 Chloride (98-107) mmol/L 106 Carbon Dioxide (21.0-32.0) mmol/L 25.1 Anion Gap (3-11) mmol/L 10.9 BUN (7-18) mg/dL 13 Creatinine (0.55-1.02) mg/dL 1.0 Est GFR (CKD-EPI 2020) (mL/min/1.73m2) 79.19 Glucose (74-106) mg/dL 105 Calcium (8.5-10.1) mg/dL 8.9 Total Bilirubin (0.2-1.0) mg/dL 0.5 AST (15-37) U/L 17 ALT (14-59) U/L 22 Alkaline Phosphatase (46-116) U/L 65 Total Protein (6.4-8.2) g/dL 8.3 H Albumin (3.4-5.0) g/dL 3.7 Lipase (16-77) U/L 37 Urine Color Cancelled Urine Clarity Cancelled Urine pH Cancelled Ur Specific [place] Cancelled Urine Protein Cancelled Urine Ketones Cancelled Urine Blood Cancelled Urine Nitrite Cancelled Urine Bilirubin Cancelled Urine Urobilinogen Cancelled Ur Leukocyte Esterase Cancelled Urine RBC (0-2) HPF Urine WBC (0-5) HPF Ur Epithelial Cells (Negative) HPF Urine Crystals (Negative) HPF Urine Bacteria (Negative) HPF Urine Casts (Negative) LPF Urine Mucus (Negative) Urine Other (Negative) Ur Culture Indicated? Urine Glucose Cancelled Range/Units 12/06/22 12:30 WBC (4.4-10.8) 10^3/uL RBC (3.93-5.22) 10^6/uL Hgb (11.2-15.7) g/dL Hct (36.0-46.0) % MCV (80-95) fL MCH (27.0-33.0) pg MCHC (32.0-36.0) % RDW (11.7-14.6) % Plt Count (130-400) 10^3/uL MPV (8.0-11.0) fL Immature Gran % Neutrophils % Lymphocytes % Monocytes % Eosinophils % Basophils % Nucleated RBC % (0.0-0.3) % Absolute Neutrophils (1.2-6.7) 10^3/uL Absolute Lymphocytes (1.2-3.4) 10^3/uL Absolute Monocytes (0.1-0.8) 10^3/uL Absolute Eosinophils (0.0-0.7) 10^3/uL Absolute Basophils (0.0-0.2) 10^3/uL Sodium (136-145) mmol/L Potassium (3.5-5.1) mmol/L Chloride (98-107) mmol/L Carbon Dioxide (21.0-32.0) mmol/L Anion Gap (3-11) mmol/L BUN (7-18) mg/dL Creatinine (0.55-1.02) mg/dL Est GFR (CKD-EPI 2020) (mL/min/1.73m2) Glucose (74-106) mg/dL Calcium (8.5-10.1) mg/dL Total Bilirubin (0.2-1.0) mg/dL AST (15-37) U/L ALT (14-59) U/L Alkaline Phosphatase (46-116) U/L Total Protein (6.4-8.2) g/dL Albumin (3.4-5.0) g/dL Lipase (16-77) U/L Urine Color Yellow Urine Clarity Clear Urine pH 5.5 Ur Specific [place] <= 1.005 Urine Protein Negative Urine Ketones Negative Urine Blood Small H Urine Nitrite Negative Urine Bilirubin Negative Urine Urobilinogen 0.2 Ur Leukocyte Esterase Negative Urine RBC (0-2) HPF 3-5 H Urine WBC (0-5) HPF 0-2 Ur Epithelial Cells (Negative) HPF Moderate Urine Crystals (Negative) HPF Negative Urine Bacteria (Negative) HPF Moderate Urine Casts (Negative) LPF Negative Urine Mucus (Negative) Trace Urine Other (Negative) Negative Ur Culture Indicated? No/Sq. Contamination Urine Glucose Negative HPI General Mode of arrival: ambulatory . Date/Time Provider Initiated Documentation: 12/06/22 10:52 . Limitations to Documentation: no limitations . Information obtained by: patient . HPI Narrative: 27yo F with PCOS, IBS, presenting for diarrhea and nausea x 4 days and vomiting x 1 starting this morning. Abdominal pain for the last two days, dull, crampy, severe. Seen outpatient and prescribed zofran (has not picked up yet); dropped off stool sample this morning. Emesis is nonbloody nonbilious. Diarreha is nonbloody. Has had similar symptoms in the past, most recently two months ago, diagnosed with 'stomach bug'. No sick contacts. She is otherwise in her usual state of health with no fevers, chills, chest pain, shorntess of breath, rash, or other concerns. Related Data Home Medications Medication Instructions Recorded Confirmed levonorgestrel 21 mcg/24 hours (8 1 device intrauterine ONCE 07/28/21 12/06/22 yrs) 52 mg intrauterine device (Mirena) ondansetron 8 mg disintegrating 8 mg PO Q8H PRN nausea and 10/25/22 12/06/22 tablet vomiting #30 tabs Previous Rx's Medication Instructions Recorded ondansetron 8 mg disintegrating 8 mg PO Q8H PRN nausea and 10/25/22 tablet vomiting #30 tabs Allergies Allergy/AdvReac Type Severity Reaction Status Date / Time No Known Allergies Allergy Verified 12/06/22 10:36 General Stated Complaint: Nausea/Vomit/Diar MAICO: 3 Review of Systems Narrative: see HPI PFSH All Active Problems (Updated 12/06/22 @ 13:35 by Adrianne Fitch MD) Colitis (Acute) PCOS (polycystic ovarian syndrome) (Chronic) Obstructive sleep apnea (Chronic) PSG 04/22/20 Adjustment disorder with mixed anxiety and depressed mood (Chronic) Per [facility] Psychiatry Hyperlipidemia (Chronic) IUD surveillance (Chronic) Mirena IUD inserted 06/29/21 Heavy menses (Chronic) Oligomenorrhea (Chronic) Obesity (Chronic) Medical History (Updated 12/06/22 @ 13:35 by Adrianne Fitch MD) Suicide attempt Surgical History No significant past surgical history Family History Mother Depression Hypertension Father Depression Asthma Hypertension Sister Ulcerative colitis Maternal Grandfather No problems noted. Maternal Grandmother Bladder cancer Paternal Grandfather Depression Paternal Grandmother No problems noted. Maternal Aunt Bipolar affective disorder Social History Smoking/Tobacco Use Status: Current every day Tobacco Type: e-cigarettes Tobacco: How many years used: 10 Second Hand Exposure: Yes Smoking risk assessment performed?: Yes Alcohol Intake: current Alcohol Intake frequency: holidays/special occasions only Alcohol type: beer, wine and hard liquor Drug use: Daily Substance use type: marijuana Caregiver/Support person: No Household members: family Housing: apartment Communication Needs: None Do you need help understanding health information?: Rarely Pets and animals: Yes (Parakeet, sugar glider,) Pets and animals: hamster(s) Sexually active: Yes Do you think of yourself as: bisexual Current gender identity: neither exclusively male nor female What is your relationship status?: never How often do you talk on the phone with friends or family?: twice per week How often do you get together with friends or relatives?: once per week How often do you attend spiritism or gnosticism services?: decline to answer Do you belong to any clubs or organized social groups?: no Panel score (0-1 are the most socially isolated patients): 1 What type of physical activity do you participate in: walking Duration: 45-60 minutes/day Frequency: 3-4 times per week Jossy/Worship: No preference Special jossy needs: No Seatbelt use: always Helmet use: Yes Helmet use: always Drive 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 Head: Normocephalic, atraumatic Neck: Trachea midline, Neck supple. ENT: MMM. No oropharygeal lesions or exudate. Cardiac: RRR, no murmurs appreciated Resp: No respiratory distress. CTAB. Abd: Soft, non-distended. TTP of RLQ and right-mid abdomen. : Mild suprapubic tenderness. No CVA tenderness. Extremities: No deformities. No peripheral edema. Neurologic: GCS 15. Moves all extremities freely against gravity Course Vital Signs Vital signs: Vital Signs Temperature 37.0 C 12/06/22 10:33 Pulse 81 12/06/22 10:33 Respiratory Rate 20 12/06/22 10:33 Blood Pressure 138/77 12/06/22 10:33 Pulse Oximetry 99 12/06/22 10:33 Temperature 37.0 C 12/06/22 10:33 Pulse 81 12/06/22 10:33 Respiratory Rate 20 12/06/22 10:33 Respiratory Effort Normal 12/06/22 10:37 Blood Pressure 138/77 12/06/22 10:33 Blood Pressure Position Sitting 12/06/22 10:33 Pulse Oximetry 99 12/06/22 10:33 Oxygen Delivery Method Room Air 12/06/22 10:33 Oxygen Flow Rate 0 12/06/22 10:33
[2022-12-06] MEDS: Ondansetron 4 MG/2 ML VIAL IVP (11:00)
[2022-12-06] MEDS: ACETAMINOPHEN 1,000 MG/100 ML BTL 400 MG IVPB (11:00)
[2022-12-06] MEDS: Ketorolac 15 MG/ML VIAL IVP (11:00)
[2022-12-06 11:15] LABS: Abs Immature Grans 0.05 10^3/uL (0.0-0.06); Absolute Basophil Count 0.05 10^3/uL (0.0-0.2); Absolute Eosinophil Count 0.02 10^3/uL (0.0-0.7); Absolute Lymphocyte Count 2.06 10^3/uL (1.2-3.4); Basophils % 0.3; Eosinophils % 0.1; HCT 40.9 % (36.0-46.0); HGB 13.1 g/dL (11.2-15.7); Immature Grans % 0.3; Lymphocytes % 13.7; MCH 27.4 pg (27.0-33.0); MCV 86 fL (80-95); MPV 11.1 fL (8.0-11.0); Monocytes % 4.5; Neutrophils % 81.1; Platelet Count 301 10^3/uL (130-400); RBC 4.78 10^6/uL (3.93-5.22); RDW 12.3 % (11.7-14.6); RDW-SD 38.2 fL; WBC 15.03 10^3/uL (4.4-10.8)
[2022-12-06 11:16] LABS: Absolute Monocyte Count 0.68 10^3/uL (0.1-0.8); Absolute Neutrophil Count 12.19 10^3/uL (1.2-6.7)
[2022-12-06] MEDS: Normal Saline 1,000 ML 1000 ML IV (11:24)
[2022-12-06 11:27] LABS: ALT 22 U/L (14-59); AST 17 U/L (15-37); Albumin 3.7 g/dL (3.4-5.0); Alkaline Phosphatase 65 U/L (46-116); Anion Gap 10.9 mmol/L (3-11); BUN 13 mg/dL (7-18); Bilirubin, Total 0.5 mg/dL (0.2-1.0); CO2 25.1 mmol/L (21.0-32.0); Calcium 8.9 mg/dL (8.5-10.1); Chloride 106 mmol/L (98-107); Estimated GFR 79.19 (mL/min/1.73m2); Glucose 105 mg/dL (74-106); Lipase 37 U/L (16-77); Potassium 3.9 mmol/L (3.5-5.1); Sodium 142 mmol/L (136-145); Total Protein 8.3 g/dL (6.4-8.2)
[2022-12-06] MEDS: Normal Saline - Diluent 50 ML VIAL IJ (11:31)
[2022-12-06] MEDS: Normal Saline Flush 10 ML SYR IVP (11:32)
[2022-12-06] MEDS: Omnipaque 350 MG/ML 500 ML BTL-Imaging package IJ (11:32)
[2022-12-06 12:36] LABS: Bilirubin Negative (Negative); Blood Small (Negative); Clarity Clear (Clear); Glucose Negative (Negative); Ketones Negative (Negative); Leukocyte Esterase Negative (Negative); Nitrite Negative (Negative); Specific Gravity <= 1.005 (1.005-1.025); Urobilinogen 0.2 mg/dL (Up to 0.2); pH 5.5 (5-8)
[2022-12-06 12:44] LABS: Other Cells Negative (Negative); WBC 0-2 HPF (0-5)
[2022-12-06 12:45] LABS: Bacteria Moderate HPF (Negative); C & S Indicated? No/Sq. Contamination; Casts Negative LPF (Negative); Crystals Negative HPF (Negative); Epithelial Cells Moderate HPF (Negative); Mucus Trace (Negative)
== END 2022-12-06 14:12 | disposition home or self-care (01) ==
PROVIDERS: Emergency Provider Student in an Organized Health Care Education/Training Program; PCP Nurse Practitioner Family
DX: R11.2 Nausea with vomiting, unspecified (principal); K52.9 Noninfective gastroenteritis and colitis, unspecified; Z97.5 Presence of (intrauterine) contraceptive device
CPT/HCPCS: 80053; 81025; 83690; 96365; 96375; 99285; 74177; 81003; 81015; 85025; 99284; J0131; J1885; J2405

== ENCOUNTER 2022-12-11 09:22 | Outpatient (CLI) | payer SELFPAY ==
[2022-12-13 12:36] LABS: IgA 307 mg/dL (85-499); Interpretation (See Note); Tissue Transglutaminase IgA <1.2 U/mL (<4.0)
== END 2022-12-11 09:23 | disposition home or self-care (01) ==
LOC: LOS 09:22
PROVIDERS: PCP Nurse Practitioner Family; Referring Provider Nurse Practitioner Family; Visit Provider Nurse Practitioner Family
DX: R19.7 Diarrhea, unspecified (principal)
CPT/HCPCS: 36415; 82784; 83516

== ENCOUNTER 2022-12-27 18:41 | Outpatient (CLI) | payer SELFPAY ==
[2022-12-27 11:43] LABS: Iron 72 ug/dL (50-170); Total Iron Binding Capacity 293 ug/dL (250-450); Transferrin Sat 25 % (15-50)
[2022-12-27 12:09] LABS: C-Reactive Protein 0.34 mg/dL (0.0-0.3); Ferritin 36 ng/mL (8-252); Folate 14.1 ng/mL (8.6-20.0); Vitamin B12 360 pg/mL (193-986)
[2022-12-28 09:31] LABS: HBs Antibody, Qual Negative (See Note); HBs Antibody, Quant <3.1 mIU/mL (See Note); Hepatitis B Core Antibody Negative (Negative); Hepatitis B surface Ag Negative (Negative); Hepatitis C Ab w Rflx HCV PCR Negative (Negative)
[2022-12-28 13:12] LABS: ANCA Interpretation Negative (Negative)
[2022-12-28 13:15] LABS: ANA Interpretation Positive (Negative); ANA Titer Pattern 1:80 Speckled
[2022-12-29 15:40] LABS: c-ANCA Negative (Negative); p-ANCA Negative (Negative)
[2022-12-31 12:19] LABS: TB Interpretation Negative (Negative); TB1 Ag minus Nil 0.01 IU/ml; TB2 Ag minus Nil 0.02 IU/mL
== END 2022-12-27 18:42 | disposition home or self-care (01) ==
LOC: LBO 01-05 18:41
PROVIDERS: PCP Nurse Practitioner Family; Visit Provider Surgery
DX: E28.2 Polycystic ovarian syndrome (principal); E66.9 Obesity, unspecified; E78.5 Hyperlipidemia, unspecified; F10.10 Alcohol abuse, uncomplicated; F12.90 Cannabis use, unspecified, uncomplicated; F43.23 Adjustment disorder with mixed anxiety and depressed mood; G47.33 Obstructive sleep apnea (adult) (pediatric); K02.9 Dental caries, unspecified; K04.7 Periapical abscess without sinus; N91.5 Oligomenorrhea, unspecified; N92.0 Excessive and frequent menstruation with regular cycle; R19.7 Diarrhea, unspecified; Z30.431 Encounter for routine checking of intrauterine contraceptive device; Z72.0 Tobacco use; Z80.0 Family history of malignant neoplasm of digestive organs; Z83.79 Family history of other diseases of the digestive system; T14.91XA Suicide attempt, initial encounter
CPT/HCPCS: 36415; 86255; 86704; 86706; 86803; 87340; 82607; 82728; 82746; 83540; 83550; 86038; 86140; 86480

== ENCOUNTER 2023-01-15 08:47 | Day surgery (SDC) | payer SELFPAY ==
[2023-01-15 09:02] VITALS: BP 110/75; PULSE 80; RESP 17; TEMP 36.7; O2SAT 98
--- NOTE | 2023-01-15 09:43 | ANES.PREOP_ITS ---
General Info Date of Service Date Performed: 01/15/23 Height: 5 ft 4 in Weight: 117.2 kg Body Mass Index (BMI): 44.3 Surgical Procedure: Operation Date: 01/15/23 10:35 Proposed Procedure Side Surgeon p Colonoscopy & Biopsy of TI Nellie Disla, Meds Allergies and Home Medications Allergies Allergy/AdvReac Type Severity Reaction Status Date / Time No Known Allergies Allergy Verified 01/15/23 09:19 Home Medication Medication Instructions Recorded levonorgestrel 21 mcg/24 hours (8 1 device intrauterine ONCE 07/28/21 yrs) 52 mg intrauterine device (Mirena) bisacodyl 5 mg tablet,delayed 5 mg PO ONCE colonscopy bowel prep 12/27/22 release (Dulcolax (bisacodyl)) #4 tabs omeprazole 40 mg capsule,delayed 40 mg PO DAILY 12/27/22 release polyethylene glycol 3350 17 238 g PO ONCE colonoscopy prep 12/27/22 gram/dose oral powder #238 grams Current Visit Medications: Current Medications Generic Name Dose Route Start Last Admin Trade Name Freq PRN Reason Stop Dose Admin Hyoscyamine Sulfate 0.125 mg 01/15/23 09:16 Hyoscyamine 0.125 Mg Sl/Oral/Chew SL 02/14/23 09:15 DIRECTED PRN Ringer's Solution 1,000 mls @ 80 mls/hr 01/15/23 06:00 IV 02/13/23 23:59 INFUSION VINCENT IV Miscellaneous Supplies 1 each 01/15/23 06:00 Iv Access IV 02/13/23 23:59 DIRECTED VINCENT Ondansetron HCl 4 mg 01/15/23 09:16 Ondansetron 4 Mg/2 Ml Vial IVP 02/14/23 09:15 Q4H PRN PRN Nausea / Vomiting Sodium Chloride 0 ml 01/15/23 06:00 Normal Saline Flush 10 Ml Syr IV 02/13/23 23:59 PRN PRN Sodium Chloride 0 ml 01/15/23 06:00 Normal Saline 10 Ml Vial IJ 02/13/23 23:59 DIRECTED PRN Sterile Water 0 ml 01/15/23 06:00 Water,Injection,Sterile 10 Ml Vial IJ 02/13/23 23:59 DIRECTED PRN PFSH Active Problems Active Problems: Problem Status Onset Code Family hx of colon cancer Z80.0 Alcohol abuse, daily use F10.10 Tobacco abuse Z72.0 Marijuana smoker, continuous F12.90 Infected dental carries K02.9, K04.7 Obesity E66.9 Hyperlipidemia E78.5 Oligomenorrhea N91.5 PCOS (polycystic ovarian syndrome) E28.2 Heavy menses N92.0 Adjustment disorder with mixed anxiety and depressed mood F43.23 IUD surveillance Z30.431 Obstructive sleep apnea G47.33 Diarrhea R19.7 Family history of ulcerative colitis Z83.79 Medical History Medical History Suicide attempt Medical History Comments:: poor dentition Surgical History Surgical History No significant past surgical history Tobacco Smoking/Tobacco Use Status: Current every day Tobacco Type: e-cigarettes Passive smoking exposure: Yes Second hand exposure: Yes Alcohol Alcohol Intake: current Alcohol intake frequency: holidays/special occasions only Alcohol type: beer, wine and hard liquor Substance Use Substance use: Daily Substance use type: marijuana Details: last time Saturday night Prental History History 2 0 Para Hx # Term Pregnancies Multiple births Hx # Pregnancies Ectopic pregnancies AB induced Hx Number of Living Children AB spontaneous Vital Signs and Lab Results Vital Signs Most Recent Vital Signs in EMR: Most Recent Vital Signs Temp Pulse Resp BP Pulse Ox 36.7 C 80 17 110/75 98 01/15/23 09:02 01/15/23 09:02 01/15/23 09:02 01/15/23 09:02 01/15/23 09:02 Point of Care Results Point of Care Results: POC- Test(urine) Negative 01/15/23 09:45 Lab Results Blood Type / Crossmatch: 2 No Data to Display Complete Blood Count: 2 No Data to Display Complete Metabolic Panel: 2 C-Reactive Protein 0.34 mg/dL (0.0-0.3) H 12/27/22 10:35 Liver Function Panel: 2 No Data to Display Coagulation Panel: 2 No Data to Display Cardiac Panel: 2 No Data to Display Arterial Blood Gas: 2 No Data to Display Venous Blood Gas: 2 No Data to Display Pancreas Panel: 2 No Data to Display Thyroid Panel: 2 No Data to Display Infectious Disease: 2 Hepatitis B Surface Antigen Negative (Negative) 12/27/22 10:35 Hepatitis C Antibody Negative (Negative) 12/27/22 10:35 Blood Cultures: 2 No Data to Display Toxicology Panel: 2 No Data to Display Panel: 2 No Data to Display Imaging and Studies Imaging and Studies Study information below may be from another EMR and interpreted by another provider. Please see original notes in EMR for more complete details. EKG Summary: Conclusion Sinus rhythm...normal P axis, V-rate 60- 99 sinus rhythm, normal axis, normal intervals 10/22/21 Anesthesia Assessment and Plan Anesthesia History Personal History: No History of Anesthesia Complications Family History: No Family History of Anesthesia Complications Exercise Tolerance Exercise Tolerance: Metabolic Equivalents>4 Cardiac & Pulmonary Exam Cardiac Exam: Normal S1/S2 Heart Sounds Pulmonary Exam: Clear Bilateral Breath Sounds Implantable Cardiac Device Does patient have a Pacemaker or an ICD?: No Airway Exam Known Difficult Airway: No Mallampati Class: 2 Mouth Opening: Normal (> 3cm) Thyromental Distance: Greater than 3 cm Neck Range of Motion: Full ROM Neck Circumference: Normal Teeth Condition: Generalized Poor Dentition, Loose or Chipped, Dental Caries and Advised tooth loss possible given current condition (indicate tooth) (Significant peridontal disease. Did discuss no guarantees related to ) Tooth Numberin 1. Patient reported self-removed a shard of tooth last night. 2. No teeth 3. Significant peridontal disease ASA Classification ASA Score: ASA 3 Emergency Case?: No NPO Status NPO Status: NPO Clears >2 hours, Solids >8 hours Status Status: Negative HCG Anesthesia Plan Resuscitation Status: Full Code Anesthesia Technique: General Anesthesia Airway Planned: Natural Airway Monitors Used: Standard Monitors Preoperative Comments:: 27 yo patient in for Colonoscopy: PPMH: KADE, daily alcohol, marijuana, PCOS.
[2023-01-15] MEDS: Lactated Ringers 1,000 ML 80 ML IV (09:50)
[2023-01-15] MEDS: Famotidine 20 MG/2 ML VIAL IVP (10:10)
[2023-01-15] MEDS: Normal Saline Flush 10 ML SYR IV (10:11)
--- NOTE | 2023-01-15 10:43 | BOWEL_PTH ---
PATIENT: Yolanda Summers LOC: [facility] U#:[id number] AGE/SX: 27/F ROOM: RE01/15/[address]: Nellie Disla : 1995 BED: DIS: 01/15/2023 SPEC #: [id number] RECD: 01/15/23 12:38 STATUS: REZA RE #: [id number] CARMEL: 01/15/23 10:[address]: Nellie Disla DEPT: Surgical Specimen RECD BY: Vani Beckett ENTERED: 01/15/23 12:39 SP TYPE: Bowel OTHR DR: Jacquelyn Ladd, OLIVIA Tissues: 1 - BIOPSY BOWEL 2 - BIOPSY BOWEL 3 - BIOPSY BOWEL 4 - BIOPSY BOWEL 5 - BIOPSY BOWEL 6 - BIOPSY BOWEL 7 - BIOPSY BOWEL 8 - BIOPSY BOWEL 9 - BIOPSY BOWEL 10 - BIOPSY BOWEL 11 - BIOPSY BOWEL Procedures: GROSS AND MICRO LEVEL 4 Comments: [id number]
[2023-01-15 10:46] VITALS: BMI 44.3
[2023-01-15 11:00] VITALS: BP 113/58; PULSE 64; RESP 16; TEMP 36.5; O2SAT 99
--- NOTE | 2023-01-15 11:04 | PDOC.DSDIS_ITS ---
Date of service: 01/15/23 Time of Service: 11:04 Discharge Plan Disposition Patient Disposition: Home Condition: Good Discharge Details Reason For Visit: colon scope Attending Provider: Nellie Disla Primary Care Provider: Jacquelyn Ladd Home Meds and New Rx's Prescriptions: Continued Mirena 20 mcg/24 hours (7 yrs) 52 mg intrauterine device 1 device intrauterine ONCE Rx Instructions: as a single dose omeprazole 40 mg capsule,delayed release(DR/EC) 40 mg PO DAILY Discontinued polyethylene glycol 3350 17 gram/dose powder 238 g PO ONCE Qty: 238 0RF Rx Instructions: take per colonoscopy instructions bisacodyl [Dulcolax (bisacodyl)] 5 mg tablet,delayed release (DR/EC) 5 mg PO ONCE Qty: 4 0RF Rx Instructions: take per colonoscopy instructions Discharge Instructions Additional Instructions: DSU Colonoscopy Post- Op Instructions Instructions for Everyone who is given Anesthesia: For your safety, please do the following for the next twenty-four (24) hours: *Do Not operate a motor vehicle (car, truck, motorcycle, etc.) *Do Not drink alcoholic beverages or use any recreational drugs for the first 24 hours or while taking pain medications. The medications in your body may have a reaction that can be dangerous. *Do Not make any important decisions or sign any important papers. Findings: Normal Follow up: My office will send a letter in 2 to 3 weeks time with your biopsy results and when we want you to repeat your colonoscopy 1. No lifting over 20 pounds or strenuous activity for the first 24 hours after your procedure. After 24 hours there are no restrictions on your activity but you may feel fatigued for a few days. 2. After you arrive home you may have a light meal and return to your normal diet as you can tolerate it without feeling sick to your stomach. 3. You may have a bloated, gaseous feeling in your belly (abdomen) after a colonoscopy. Passing gas and belching will help. Walking or lying down on your left side with your knees flexed may relieve the discomfort. Call the office at [phone] (Office) or [phone] (Hospital) right away if you notice any of the following: a.Vomiting of blood or ?coffee ground stools?. b.Rectal bleeding 1Tbsp, blood clots or continuous bleeding. c.Severe belly (abdominal) pain. d.A hard distended belly (abdomen) and an inability to pass gas. 4. Please don?t expect to have a normal BM (bowel movement) for 2-3 days after your procedure. 5. If there are questions regarding the findings of your procedure, please contact your doctor 6. If you are unable to contact your doctor with a problem, contact the hospital at [phone]. 7. Continue all your regular medications unless directed otherwise. I understand the above instructions and have no questions. Signature of Patient or Adult Escort Name of Responsible Adult Escort Signature of Nurse Date/Time Activity:: See above Diet:: See above Discharge Orders Discharge Orders: Discharge Order (Routine); Ordered 01/15/23 Ordered By: Nellie Disla DS: Diagnosis Discharge Diagnosis (1) Family hx of colon cancer: Status: Acute Asessment and Plan: The patient is seen and examined after their colonoscopy.? The patient has been able to pass gas.? They are not having abdominal pain.? They have been able to tolerate liquids and a snack.? They do not have any nausea or vomiting.? They are not having any chest pain or shortness of breath.??? They are not having any rectal bleeding. Their vital signs have been stable-see nursing notes. We discussed findings during their colonoscopy, and any biopsies that were done/polyps that were removed. The patient will be sent a letter with any biopsy results, and when to repeat the colonoscopy.-see discharge instructions. Patient was given explicit instructions to follow-up regarding colonoscopy-refer to discharge instructions.? We reviewed resumption of medications. Patient verbalized understanding and discharged in stable and satisfactory condition- See nursing notes. (2) Alcohol abuse, daily use: Status: Acute (3) Marijuana smoker, continuous: Status: Acute (4) Tobacco abuse: Status: Acute (5) Infected dental carries: Status: Acute (6) Obesity: Status: Chronic (7) Hyperlipidemia: Status: Chronic (8) PCOS (polycystic ovarian syndrome): Status: Chronic (9) Obstructive sleep apnea: Status: Chronic (10) Diarrhea: Status: Acute
--- NOTE | 2023-01-15 11:10 | W.COLOREPORT ---
Date of service: 01/15/23 Time of Service: 11:10 Colonoscopy Report Date of procedure: 01/15/23 Pre-op diagnosis general: Sister has ulcerative colitis and colon cancer Post-op diagnosis procedure note: other (Normal) Anesthesia Type: General:No Airway Estimated blood loss (mL): 3 Pathology: other Complications: None Disposition: same day Prep: Miralax/Dulcolax Retraction Time: 11 Procedure Description: After informed consent was obtained the patient was taken to the procedure room and placed in a left decubitous position. Monitors were applied and a time out was done. The patients name, date of , procedure, allergies to medications and metal in their body was reviewed. The patient was then sedated. Once sedated and comfortable a rectal exam was done. External exam was normal. Internal exam revealed a normal sphincter tone and no palpable masses. The scope was then introduced and retrofelexed. No internal hemorrhoids were identified. The scope was then advanced to the cecum without difficulty. The TI and appendiceal orifice were identified. The prep was BBPS 3 in all segments for total of 9. The scope was then slowly retracted over 11 minutes back into the rectum. There are no polyps, AVMs, diverticula visualized today. The colon appears pink and healthy with a normal vascular pattern. There is no rectal or anal disease. The scope was removed and the patient was woken up and taken back to Same day surgery in stable condition. The patient tolerated the procedure well and there were no immediate complications. Follow up: The patient should follow up in 5 years unless they develop changes in bowel habits or other new gastrointestinal complaints.
--- NOTE | 2023-01-15 11:14 | W.ANESPOSTOP ---
Postoperative Evaluation Date, Time and Location Date Performed: 01/15/23 Time Performed: 11:15 Patient Location: Day Surgery Unit Vital Signs Most Recent Imported Vital Signs: Most Recent Vital Signs Temp Pulse Resp BP Pulse Ox 36.5 C 64 16 113/58 L 99 01/15/23 11:00 01/15/23 11:00 01/15/23 11:00 01/15/23 11:00 01/15/23 11:00 Pain Score Most Recent Pain Score: Most Recent Pain Score Pain Level 0 01/15/23 11:00 Assessment Mental Status: Awake (Alert & Oriented to Patient Baseline) Airway and Respiratory Function: Patent airway with normal (patient baseline) respiratory exam Cardiovascular Function: Hemodynamically Stable Hydration Status: Adequately Hydrated Nausea & Vomiting: No Nausea or Vomiting Pain: Pt. Denies Any Pain Peripheral Nerve Block: Patient did not receive a nerve block
[2023-01-15 11:30] VITALS: BP 114/78; PULSE 58; RESP 18; TEMP 36.7; O2SAT 99
== END 2023-01-15 12:00 | disposition home or self-care (01) ==
PROVIDERS: PCP Nurse Practitioner Family; Visit Provider Surgery
PROC: 0DJD8ZZ Inspection of Lower Intestinal Tract, Via Natural or Artificial Opening Endoscopic (ICD-10-PCS; CPT 45378; principal; 2023-01-15 10:30)
DX: K63.5 Polyp of colon; Z12.11 Encounter for screening for malignant neoplasm of colon; R19.7 Diarrhea, unspecified; Z83.79 Family history of other diseases of the digestive system; Z72.0 Tobacco use; Z80.0 Family history of malignant neoplasm of digestive organs
CPT/HCPCS: 45380; 81025; 88305; J2001; J2405; J2704

== ENCOUNTER 2023-03-26 10:28 | Emergency (ER) | payer SELFPAY ==
[2023-03-26 10:29] VITALS: BP 161/88; PULSE 85; RESP 16; TEMP 36.6; O2SAT 100
[2023-03-26 10:56] LABS: Bilirubin Negative (Negative); Blood Moderate (Negative); Clarity Sl Cloudy (Clear); Glucose Negative (Negative); Ketones Negative (Negative); Leukocyte Esterase Trace (Negative); Nitrite Positive (Negative); Urobilinogen 0.2 mg/dL (Up to 0.2)
[2023-03-26 11:03] LABS: Bacteria Moderate HPF (Negative); C & S Indicated? Yes; Casts Negative LPF (Negative); Crystals Negative HPF (Negative); Epithelial Cells Few HPF (Negative); Mucus Negative (Negative)
[2023-03-26] MEDS: Normal Saline 1,000 ML 1000 ML IV (11:20)
[2023-03-26] MEDS: Droperidol 5 MG/2 ML VIAL 2.5 MG IVP (11:20)
[2023-03-26] MEDS: cefTRIAXone 1 GM/50 ML BAG IVPB (11:23)
--- NOTE | 2023-03-26 11:30 | RT.EKG_ITS ---
APPROVED REPORT Exam: Resting ECG Reason for Exam: bradycardia Patient Location: E HR:53 bpm ECG Measurements Heart Rate 53 AXIS NM 197 P 28 QRSd 105 QRS 47 QT 437 T 47 QTc 412 Conclusion Sinus bradycardia rate 53 normal axis QTC within normal
[2023-03-26 11:33] LABS: Abs Immature Grans 0.03 10^3/uL (0.0-0.06); Absolute Basophil Count 0.04 10^3/uL (0.0-0.2); Absolute Eosinophil Count 0.04 10^3/uL (0.0-0.7); Absolute Lymphocyte Count 2.37 10^3/uL (1.2-3.4); Absolute Neutrophil Count 5.99 10^3/uL (1.2-6.7); Basophils % 0.4; Eosinophils % 0.4; HCT 39.6 % (36.0-46.0); HGB 13.3 g/dL (11.2-15.7); Immature Grans % 0.3; Lymphocytes % 26.4; MCH 28.2 pg (27.0-33.0); MCHC 33.6 % (32.0-36.0); MCV 84 fL (80-95); MPV 11.8 fL (8.0-11.0); Monocytes % 5.6; Neutrophils % 66.9; Platelet Count 286 10^3/uL (130-400); RBC 4.71 10^6/uL (3.93-5.22); RDW 11.7 % (11.7-14.6); RDW-SD 35.5 fL; WBC 8.97 10^3/uL (4.4-10.8)
[2023-03-26 11:50] LABS: ALT 21 U/L (14-59); AST 14 U/L (15-37); Albumin 3.5 g/dL (3.4-5.0); Alkaline Phosphatase 60 U/L (46-116); Anion Gap 9.8 mmol/L (3-11); BUN 17 mg/dL (7-18); Bilirubin, Total 0.4 mg/dL (0.2-1.0); CO2 24.2 mmol/L (21.0-32.0); Chloride 108 mmol/L (98-107); Glucose 95 mg/dL (74-106); Lipase 40 U/L (16-77); Magnesium 1.8 mg/dL (1.8-2.4); Potassium 3.7 mmol/L (3.5-5.1); Sodium 142 mmol/L (136-145); Total Protein 8.1 g/dL (6.4-8.2)
[2023-03-26 12:04] VITALS: PULSE 63
[2023-03-26 12:10] VITALS: PULSE 71
[2023-03-26 12:16] VITALS: BP 108/78; PULSE 57
--- NOTE | 2023-03-26 12:18 | ED.GENADUL_ITS ---
Discharge Plan Disposition Patient Disposition: Home Discharge Details Clinical Impression: UTI (urinary tract infection), Chronic abdominal pain, Nausea Primary Care Provider: Jacquelyn Ladd ED Provider: Lamar Mai Home Meds and New Rx's Prescriptions: New cephalexin 500 mg capsule 500 mg PO BID 5 Days Qty: 10 0RF ondansetron 4 mg tablet,disintegrating 4 mg PO Q6H PRN (Reason: nausea and vomiting) Qty: 30 0RF dicyclomine 10 mg capsule 10 mg PO TID PRN (Reason: abdominal pain) Qty: 30 0RF No Action Mirena 20 mcg/24 hours (7 yrs) 52 mg intrauterine device 1 device intrauterine ONCE Rx Instructions: as a single dose Discharge Instructions Instructions: Urinary Tract Infection in Women (ED) Additional Instructions: Start medications as prescribed. Drink lots of water. Return to the emergency department if you develop fevers, severe pain, decreased urine output, not tolerating medication. Otherwise please follow-up with your primary doctor for ongoing management of your chronic abdominal pain Medical Decision Making Emergent evaluation of acute on chronic abdominal pain. Symptoms worse over the last few days. Initial differential includes urinary tract infection, IBS, viral illness. Abdominal exam is benign though she complains of abdominal pain. Hemodynamically stable and afebrile. I doubt an acute intraabdominal process. Given her extensive workup, I do not feel that any imaging is indicated at this time. Will get lab work, fluid resuscitation and medications for symptom improvement. Lab work reviewed. There is no leukocytosis or anemia her CMP was reviewed and there is no significant electrolyte derangement. Her urinalysis is nitrite positive with trace leukocyte Estrace.. A dose of Rocephin was given in the emergency department. She was given a dose of droperidol for ongoing pain. She was noted to have bradycardia while sleeping. her EKG demonstrated sinus bradycardia, she was monitored on telemetry monitoring. Her heart rate came back up when she woke up and was talking. I do not feel further evaluation of this bradycardia is indicated. She was treated with a dose of Rocephin and will be discharged with Keflex for treatment of her urinary tract infection. I will prescribe her Zofran and Bentyl for her ongoing abdominal pain issues. Recommend close follow-up with primary care. Return precautions advised. Medical Records Medical records reviewed: Yes I reviewed the patient's medical records. Lab Data Lab results reviewed: Yes I reviewed the patient's lab results. ECG Data Attestation: I personally reviewed and interpreted this ECG (s) as follows: Prior ECG tracings: not available for review Interpretation: Sinus bradycardia 53, no acute segment changes. QTc 412 HPI General Date/Time Provider Initiated Documentation: 03/26/23 10:51 . Limitations to Documentation: no limitations . Information obtained by: patient . HPI Narrative: 28-year-old female with past medical history of PCOS, obesity, chronic abdominal pain presents for evaluation of worsened abdominal pain. She reports for the last 4 months she has been having ongoing abdominal pain, nausea, vomiting, diarrhea. She has been evaluated by multiple providers and had colonoscopy. She reports that all her prior diagnostic test testing has been negative. She reports over the last few days she has been having worsening of her abdominal pain. She is tolerating p.o. She reports multiple soft watery bowel movements per day. No fever. Related Data Home Medications Medication Instructions Recorded Confirmed levonorgestrel 21 mcg/24 hours (8 1 device intrauterine ONCE 07/28/21 03/26/23 yrs) 52 mg intrauterine device (Mirena) cephalexin 500 mg capsule 500 mg PO BID 5 days #10 caps 03/26/23 dicyclomine 10 mg capsule 10 mg PO TID PRN abdominal pain 03/26/23 #30 caps ondansetron 4 mg disintegrating 4 mg PO Q6H PRN nausea and 03/26/23 tablet vomiting #30 tabs Previous Rx's Medication Instructions Recorded cephalexin 500 mg capsule 500 mg PO BID 5 days #10 caps 03/26/23 dicyclomine 10 mg capsule 10 mg PO TID PRN abdominal pain 03/26/23 #30 caps ondansetron 4 mg disintegrating 4 mg PO Q6H PRN nausea and 03/26/23 tablet vomiting #30 tabs Allergies Allergy/AdvReac Type Severity Reaction Status Date / Time No Known Allergies Allergy Verified 03/26/23 10:34 General Stated Complaint: Abd Prob MAICO: 3 PFSH All Active Problems (Updated 03/26/23 @ 12:15 by Lamar Mai MD) Nausea (Acute) Chronic abdominal pain (Acute) UTI (urinary tract infection) (Acute) Family hx of colon cancer (Acute) Sister has colon cancer at age 28 due to uncontrolled UC Alcohol abuse, daily use (Acute) Tobacco abuse (Acute) Marijuana smoker, continuous (Acute) Infected dental carries (Acute) Obesity (Chronic) Hyperlipidemia (Chronic) Oligomenorrhea (Chronic) PCOS (polycystic ovarian syndrome) (Chronic) Heavy menses (Chronic) Adjustment disorder with mixed anxiety and depressed mood (Chronic) Per [facility] Psychiatry IUD surveillance (Chronic) Mirena IUD inserted 06/29/21 Obstructive sleep apnea (Chronic) PSG 04/22/20 Diarrhea (Acute) Family history of ulcerative colitis (Acute) Medical History Suicide attempt Surgical History No significant past surgical history Family History Mother Depression Hypertension Father Depression Asthma Hypertension Sister Ulcerative colitis Maternal Grandfather No problems noted. Maternal Grandmother Bladder cancer Paternal Grandfather Depression Paternal Grandmother No problems noted. Maternal Aunt Bipolar affective disorder Social History Smoking/Tobacco Use Status: Current every day Tobacco Type: e-cigarettes Tobacco: How many years used: 10 Second Hand Exposure: Yes Smoking risk assessment performed?: Yes Alcohol Intake: current Alcohol Intake frequency: holidays/special occasions only Alcohol type: beer, wine and hard liquor Drug use: Daily Substance use type: marijuana Details: last time Saturday night Caregiver/Support person: No Household members: family Housing: apartment Communication Needs: None Do you need help understanding health information?: Rarely Pets and animals: Yes (sourav [place],) Pets and animals: hamster(s) Sexually active: Yes Do you think of yourself as: bisexual Current gender identity: neither exclusively male nor female What is your relationship status?: never How often do you talk on the phone with friends or family?: twice per week How often do you get together with friends or relatives?: once per week How often do you attend yazdanism or faith services?: decline to answer Do you belong to any clubs or organized social groups?: no Panel score (0-1 are the most socially isolated patients): 1 What type of physical activity do you participate in: walking Duration: 45-60 minutes/day Frequency: 3-4 times per week Jossy/Mormon: No preference Special jossy needs: No Seatbelt use: always Helmet use: Yes Helmet use: always Drive intox or ride w/intox otr flatbed company truck driver: No Do you feel safe at home: Yes Do you feel safe in your relationship?: Yes History History 0 Para Hx # Term Pregnancies Multiple births Hx # Pregnancies Ectopic pregnancies AB induced Hx Number of Living Children AB spontaneous Exam Narrative Exam Narrative: Review of Systems: All systems reviewed & are unremarkable except as noted in HPI and below Well-developed, obese, no acute distress NACT PERRL, normal conjunctiva Dry mucous membranes RRR Unlabored respiratory effort Nondistended abdomen, no tenderness to palpation, no CVA tenderness Extremities w/o deformity, no cyanosis, no edema No rashes or lesions. no focal neurologic deficits Appropriate mood and affect Course Vital Signs Vital signs: Vital Signs Temperature 36.6 C 03/26/23 10:29 Pulse 85 03/26/23 10:29 Respiratory Rate 16 03/26/23 10:29 Blood Pressure 161/88 H 03/26/23 10:29 Pulse Oximetry 100 03/26/23 10:29 Temperature 36.6 C 03/26/23 10:29 Temperature Source Temporal Artery Scan 03/26/23 10:29 Pulse 85 03/26/23 10:29 Respiratory Rate 16 03/26/23 10:29 Respiratory Effort Normal 03/26/23 10:33 Blood Pressure 161/88 H 03/26/23 10:29 Blood Pressure Position Sitting 03/26/23 10:29 Pulse Oximetry 100 03/26/23 10:29 Oxygen Delivery Method Room Air 03/26/23 10:29 Oxygen Flow Rate 0 03/26/23 10:29 Pain Level 8 03/26/23 10:29 Lab/Test Results Lab/Test Results: 03/26/23 10:42 Urine - Reflex from Ua Urine Culture - Pending Laboratory Tests Range/Units 03/26/23 03/26/23 03/26/23 10:42 11:02 11:22 WBC Cancelled 8.97 RBC Cancelled 4.71 Hgb Cancelled 13.3 Hct Cancelled 39.6 MCV Cancelled 84 MCH Cancelled 28.2 MCHC Cancelled 33.6 RDW Cancelled 11.7 Plt Count Cancelled 286 MPV Cancelled 11.8 H Immature Gran % Cancelled 0.3 Neutrophils % Cancelled 66.9 Band Neutrophils % Cancelled Lymphocytes % Cancelled 26.4 Atypical Lymphs % Cancelled Monocytes % Cancelled 5.6 Eosinophils % Cancelled 0.4 Basophils % Cancelled 0.4 Metamyelocytes % Cancelled Myelocytes % Cancelled Promyelocytes % Cancelled Other Cells % Cancelled Nucleated RBC % Cancelled 0.0 Absolute Neutrophils Cancelled 5.99 Absolute Lymphocytes Cancelled 2.37 Absolute Monocytes Cancelled 0.50 Absolute Eosinophils Cancelled 0.04 Absolute Basophils Cancelled 0.04 RBC Morphology Cancelled Polychromasia Cancelled Hypochromasia Cancelled Poikilocytosis Cancelled Basophilic Stippling Cancelled Anisocytosis Cancelled Microcytosis Cancelled Macrocytosis Cancelled Spherocytes Cancelled Tear Drop Cells Cancelled Ovalocytes Cancelled Stomatocytes Cancelled [place] Bodies Cancelled [place] Cells/Echinocytes Cancelled Acanthocytes (Spur) Cancelled Schistocytes Cancelled Sodium Cancelled 142 Potassium Cancelled 3.7 Chloride Cancelled 108 H Carbon Dioxide Cancelled 24.2 Anion Gap Cancelled 9.8 BUN Cancelled 17 Creatinine Cancelled 1.0 Est GFR (CKD-EPI 2020) Cancelled 78.70 Glucose Cancelled 95 Calcium Cancelled 9.0 Magnesium Cancelled 1.8 Total Bilirubin Cancelled 0.4 AST Cancelled 14 L ALT Cancelled 21 Alkaline Phosphatase Cancelled 60 Total Protein Cancelled 8.1 Albumin Cancelled 3.5 Lipase Cancelled 40 Urine Color (Yellow) Yellow Urine Clarity (Clear) Sl Cloudy Urine pH (5-8) 6.0 Ur Specific [place] (1.005-1.025) 1.020 Urine Protein (Negative) mg/dL Negative Urine Ketones (Negative) mg/dL Negative Urine Blood (Negative) Moderate H Urine Nitrite (Negative) Positive H Urine Bilirubin (Negative) Negative Urine Urobilinogen (Up to 0.2) mg/dL 0.2 Ur Leukocyte Esterase (Negative) Trace H Urine RBC (0-2) HPF 3-5 H Urine WBC (0-5) HPF 5-10 Ur Epithelial Cells (Negative) HPF Few Urine Crystals (Negative) HPF Negative Urine Bacteria (Negative) HPF Moderate Urine Casts (Negative) LPF Negative Urine Mucus (Negative) Negative Ur Culture Indicated? Yes Urine Glucose (Negative) mg/dL Negative POC Urine Test Start: 03/26/23 10:46 Freq: Status: Complete Protocol: Document 03/26/23 10:49 RAMONA (Rec: 03/26/23 10:49 RAMONA [id number]) Test(Urine)-POC POC- Test(urine) Negative POC- Test(urine) Negative
[2023-03-28 10:08] LABS: Lab Add On Test DONE
[2023-03-28 10:31] LABS: HCG Quant, Pregnancy 1 mIU/mL (1-3); TSH 1.28 uIU/mL (0.36-3.74)
== END 2023-03-26 12:32 | disposition home or self-care (01) ==
PROVIDERS: Emergency Provider Emergency Medicine; PCP Nurse Practitioner Family
DX: R11.0 Nausea (principal); R14.0 Abdominal distension (gaseous); E28.2 Polycystic ovarian syndrome; N39.0 Urinary tract infection, site not specified
CPT/HCPCS: 36415; 80053; 81025; 83690; 87077; 93005; 96365; 96375; 99284; 81003; 81015; 83735; 84443; 84702; 85025; 87086; 87186; 93010; 99283; J0696; J1790

== ENCOUNTER 2023-05-14 12:40 | Outpatient (CLI) | payer SELFPAY ==
[2023-05-14 11:51] LABS: TSH (W/Ref FT4) 0.98 uIU/mL (0.36-3.74)
== END 2023-05-14 12:41 | disposition home or self-care (01) ==
LOC: LBO 12:41
PROVIDERS: PCP Nurse Practitioner Family; Visit Provider Physician Assistant Medical
DX: R19.7 Diarrhea, unspecified (principal); R11.0 Nausea; R14.0 Abdominal distension (gaseous)
CPT/HCPCS: 36415; 84443